=== PATIENT | male | born 1950 | race African-American/Black ===

== ENCOUNTER 2018-02-21 13:49 | Inpatient (IN) | payer MEDICARE ==
[2018-02-21] VITALS (11 sets, daily range): BP systolic 141–195; BP diastolic 74–140; BMI 32.9
[~2018-02-21] VITALS: Ht 180.3 cm; Wt 108.5 kg
[2018-02-21 20:05] LABS: CKMB 82.5 U/L (0.0-3.6); T4 THYROXIN - FREE 0.88 ng/dL (0.76-1.46); THYROID STIMULATING HORMONE 0.53 uIU/mL (0.36-3.74)
[2018-02-21 20:06] LABS: CREATINE KINASE 6119 UL (21-232)
[2018-02-21 20:07] LABS: TROPONIN-I 0.935 ng/mL (0.000-0.060)
[2018-02-21 21:57] LABS: MCH 30.7 pg (26.0-34.0); MCHC 32.5 g/dL (31.0-37.0); MCV 94.3 fL (80.0-100.0); MEAN PLATELET VOLUME 11.5 fL (7.4-10.4); PLATELET COUNT 182 10x3/uL (130-400); RBC 4.24 10x6/uL (4.20-6.10); RDW 14.9 % (11.5-14.5); WBC 20.7 10x3/uL (4.8-10.8)
[2018-02-21 22:07] LABS: ALBUMIN 2.6 g/dL (3.4-5.0); ALKALINE PHOSPHATASE 68 U/L (46-116); ALT (SGPT) 39 U/L (10-68); CALC OSMOLALITY 299 mosm/kg (275-300); CALCIUM 8.6 mg/dL (8.5-10.1); CARBON DIOXIDE 23.2 mmol/L (21.0-32.0); CHLORIDE - SERUM 108 mmol/L (98-107); GLUCOSE 131 mg/dL (74-106); POTASSIUM - SERUM 4.6 mmol/L (3.5-5.1); PROTEIN - SERUM 6.8 g/dL (6.4-8.2); SODIUM 145 mmol/L (136-145); UREA NITROGEN 39 mg/dL (7-18); eGFR NON AFRICAN AMERICAN 10 mL/min (90-120)
[2018-02-21 22:22] LABS: LYMPHOCYTES 10 % (15-50); MONOCYTES 9 % (2-11); NEUTROPHILS 81 % (40-80); PLATELET ESTIMATE NORMAL
[2018-02-22] VITALS (27 sets, daily range): BP systolic 137–180; BP diastolic 72–115
[2018-02-22 01:20] LABS: CKMB 61.8 U/L (0.0-3.6)
[2018-02-22 01:25] LABS: CREATINE KINASE 5448 UL (21-232); TROPONIN-I 0.845 ng/mL (0.000-0.060)
[2018-02-22] MEDS ORDERED: POTASSIUM99 M1 (01:57)
[2018-02-22] MEDS ORDERED: ZYLOPRIM100 MG (01:58)
[2018-02-22] MEDS ORDERED: XARELTO10 MG (01:58)
[2018-02-22 04:57] LABS: BASOPHILS 0 % (0-2); EOSINOPHILS 0 % (0-7); HEMATOCRIT 40.5 % (42.0-54.0); HEMOGLOBIN 13.2 g/dL (13.5-17.5); IMMATURE GRANULOCYTES 0.4 % (0-5); LYMPHOCYTES 8.9 % (15-50); MCH 30.7 pg (26.0-34.0); MCHC 32.6 g/dL (31.0-37.0); MCV 94.2 fL (80.0-100.0); MEAN PLATELET VOLUME 11.4 fL (7.4-10.4); MONOCYTES 4.8 % (2-11); NEUTROPHILS 85.9 % (40-80); PLATELET COUNT 189 10x3/uL (130-400); RDW 14.8 % (11.5-14.5); WBC 21.9 10x3/uL (4.8-10.8)
[2018-02-22 05:15] LABS: ALBUMIN 2.7 g/dL (3.4-5.0); ANION GAP 20.3 mmol/L (8-16); BILIRUBIN - TOTAL 0.38 mg/dL (0.2-1.3); CALCIUM 8.4 mg/dL (8.5-10.1); CARBON DIOXIDE 20.3 mmol/L (21.0-32.0); CREATININE - SERUM 6.8 mg/dL (0.6-1.3); POTASSIUM - SERUM 4.6 mmol/L (3.5-5.1); PROTEIN - SERUM 7.2 g/dL (6.4-8.2)
[2018-02-22 05:27] LABS: APPEARANCE HAZY (CLEAR); BILIRUBIN NEGATIVE (NEGATIVE); COLOR YELLOW (YELLOW); GLUCOSE 50 mg/dL (NEGATIVE); KETONE SMALL mg/dL (NEGATIVE); NITRITE NEGATIVE (NEGATIVE); PROTEIN 2+ mg/dL (NEGATIVE); UROBILINOGEN NORMAL (NORMAL); WHITE CELLS - URINE 0-5 /hpf (0-5)
[2018-02-22 07:31] LABS: CKMB 62.6 U/L (0.0-3.6)
[2018-02-22 07:32] LABS: CREATINE KINASE < 21 UL (21-232); TROPONIN-I 0.096 ng/mL (0.000-0.060)
[2018-02-22 08:51] LABS: CKMB 51.3 U/L (0.0-3.6)
[2018-02-22 08:54] LABS: CREATINE KINASE 5096 UL (21-232); TROPONIN-I 0.663 ng/mL (0.000-0.060)
[2018-02-22 14:25] LABS: POTASSIUM - URINE 22.8 MMOL/L (12.0-62.0)
[2018-02-23] VITALS (23 sets, daily range): BP systolic 150–193; BP diastolic 73–134; Ht 180.3 cm; Wt 108.5 kg
[2018-02-23 04:32] LABS: BASOPHILS 0.1 % (0-2); EOSINOPHILS 0 % (0-7); HEMATOCRIT 33.6 % (42.0-54.0); IMMATURE GRANULOCYTES 0.2 % (0-5); LYMPHOCYTES 6.9 % (15-50); MCH 29.6 pg (26.0-34.0); MCHC 29.8 g/dL (31.0-37.0); MEAN PLATELET VOLUME 12.5 fL (7.4-10.4); MONOCYTES 8.9 % (2-11); NEUTROPHILS 83.9 % (40-80); RDW 15.5 % (11.5-14.5)
[2018-02-23 04:39] LABS: MCV 99.4 fL (80.0-100.0); PLATELET COUNT 128 10x3/uL (130-400); RBC 3.38 10x6/uL (4.20-6.10); WBC 11.3 10x3/uL (4.8-10.8)
[2018-02-23 06:45] LABS: ALBUMIN 2.6 g/dL (3.4-5.0); ANION GAP 18.6 mmol/L (8-16); BILIRUBIN - TOTAL 0.51 mg/dL (0.2-1.3); CALCIUM 8.9 mg/dL (8.5-10.1); CARBON DIOXIDE 24.6 mmol/L (21.0-32.0); POTASSIUM - SERUM 4.2 mmol/L (3.5-5.1)
[2018-02-23 06:46] LABS: CREATININE - SERUM 9.2 mg/dL (0.6-1.3)
== END 2018-02-23 19:50 | disposition short-term general hospital (02) | DRG 871 ==
LOC: D.M2 13:49 → D.ICU 18:27
PROVIDERS: Internal Medicine Nephrology
PROC: 5A09357 Assistance with Respiratory Ventilation, Less than 24 Consecutive Hours, Continuous Positive Airway Pressure (ICD-10-PCS; principal; 2018-02-21)
DX: A41.9 Sepsis, unspecified organism (principal); J96.01 Acute respiratory failure with hypoxia; J96.02 Acute respiratory failure with hypercapnia; I63.9 Cerebral infarction, unspecified; J69.0 Pneumonitis due to inhalation of food and vomit; I13.0 Hypertensive heart and chronic kidney disease with heart failure and stage 1 through stage 4 chronic kidney disease, or unspecified chronic kidney disease; N17.9 Acute kidney failure, unspecified; J44.1 Chronic obstructive pulmonary disease with (acute) exacerbation; J44.0 Chronic obstructive pulmonary disease with (acute) lower respiratory infection; E87.4 Mixed disorder of acid-base balance; I24.8 Other forms of acute ischemic heart disease; M62.82 Rhabdomyolysis; E11.22 Type 2 diabetes mellitus with diabetic chronic kidney disease; I50.9 Heart failure, unspecified; I48.91 Unspecified atrial fibrillation; G47.33 Obstructive sleep apnea (adult) (pediatric); E88.09 Other disorders of plasma-protein metabolism, not elsewhere classified; Z87.891 Personal history of nicotine dependence; N18.3 Chronic kidney disease, stage 3 (moderate)

== ENCOUNTER 2019-11-11 12:12 | Emergency (ER) | payer MEDICARE ==
[~2019-11-11] VITALS: Ht 180.3 cm; Wt 90.9 kg
[~2019-11-11 12:12] MED LIST: POTASSIUM99 M1; XARELTO10 MG; ZYLOPRIM100 MG
[2019-11-11 13:48] LABS: UDS - AMPHET NEGATIVE QUAL (NEGATIVE); UDS - BARB NEGATIVE QUAL (NEGATIVE); UDS - BENZO NEGATIVE QUAL (NEGATIVE); UDS - COCAINE NEGATIVE QUAL (NEGATIVE); UDS - OPIATE NEGATIVE QUAL (NEGATIVE); UDS - PCP NEGATIVE QUAL (NEGATIVE); UDS - THC NEGATIVE QUAL (NEGATIVE)
[2019-11-11 13:49] LABS: ANION GAP 13.9 mmol/L (8-16); CALCIUM 8.9 mg/dL (8.5-10.1); CARBON DIOXIDE 27.8 mmol/L (21.0-32.0); CREATININE - SERUM 5.7 mg/dL (0.6-1.3); POTASSIUM - SERUM 4.7 mmol/L (3.5-5.1)
[2019-11-11 13:50] LABS: BASOPHILS 0.5 % (0-2); EOSINOPHILS 1.1 % (0-7); HEMATOCRIT 37.1 % (42.0-54.0); IMMATURE GRANULOCYTES 0.2 % (0-5); LYMPHOCYTES 18.6 % (15-50); MCH 32.7 pg (26.0-34.0); MCHC 32.3 g/dL (31.0-37.0); MCV 101.1 fL (80.0-100.0); MEAN PLATELET VOLUME 10.9 fL (7.4-10.4); MONOCYTES 9.9 % (2-11); NEUTROPHILS 69.7 % (40-80); PLATELET COUNT 213 10x3/uL (130-400); RBC 3.67 10x6/uL (4.20-6.10); RDW 13.3 % (11.5-14.5); WBC 6.1 10x3/uL (4.8-10.8)
[2019-11-11 13:53] LABS: BILIRUBIN NEGATIVE (NEGATIVE); GLUCOSE NEGATIVE (NEGATIVE); KETONE NEGATIVE (NEGATIVE); NITRITE NEGATIVE (NEGATIVE); UROBILINOGEN NORMAL (NORMAL)
[2019-11-11 13:54] LABS: BACTERIA NONE SEEN /hpf (NEGATIVE); EPITHELIAL CELLS RARE /hpf (0-5); RED CELLS - URINE NONE SEEN /hpf (0-5); WHITE CELLS - URINE 0-5 /hpf (NEGATIVE)
[2019-11-11 14:03] LABS: ALBUMIN 4.1 g/dL (3.4-5.0); BILIRUBIN - TOTAL 0.35 mg/dL (0.2-1.3); MAGNESIUM - SERUM 1.8 mg/dL (1.8-2.4); PROTEIN - SERUM 8.1 g/dL (6.4-8.2); T4 THYROXINE 6.7 ug/dL (4.7-13.3); THYROID STIMULATING HORMONE 0.59 uIU/mL (0.36-3.74)
[2019-11-11 14:13] VITALS: BP 155/76
[2019-11-11 14:14] VITALS: Ht 180.3 cm; Wt 90.9 kg
[2019-11-11] MEDS ORDERED: C-500500 M1 PO (18:41)
[2019-11-11] MEDS ORDERED: OMEPRAZOLE20 M1 (18:47)
[2019-11-11] MEDS ORDERED: RENVELA800 MG PO (18:49)
[2019-11-11] MEDS ORDERED: ACETAMINOPHEN325 MG (18:49)
[2019-11-11] MEDS ORDERED: LEVEMIR IN100 UNITS/ (18:50)
[2019-11-11] MEDS ORDERED: LIDOCAINE50 GM (18:51)
[2019-11-12] MEDS ORDERED: LIPITOR40 MG PO (12:18)
[2019-11-12] MEDS ORDERED: VITAMIN D1000 UNIT PO (12:19)
[2019-11-12] MEDS ORDERED: NEPHRO-VITE RX1 TAB (12:19)
[2019-11-12] MEDS ORDERED: ELIQUIS2.5 MG PO (12:20)
[2019-11-12] MEDS ORDERED: RENVELA800 MG PO (12:21)
[2019-11-12] MEDS ORDERED: HYDROCODON-ACE1 EAC7 PO (12:21)
== END 2019-11-11 17:20 | disposition other institution (70) ==
LOC: D.ER 12:12
PROVIDERS: Family Medicine
DX: F03.91 Unspecified dementia, unspecified severity, with behavioral disturbance (principal); I48.91 Unspecified atrial fibrillation; I10 Essential (primary) hypertension

== ENCOUNTER 2019-11-11 17:39 | Inpatient (IN) | payer MEDICARE ==
[~2019-11-11] VITALS: Ht 180.3 cm; Wt 92.8 kg
[2019-11-11] MEDS ORDERED: C-500500 M1 PO (18:41)
[2019-11-11] MEDS ORDERED: OMEPRAZOLE20 M1 (18:47)
[2019-11-11] MEDS ORDERED: ACETAMINOPHEN325 MG (18:49)
[2019-11-11] MEDS ORDERED: RENVELA800 MG PO (18:49)
[2019-11-11] MEDS ORDERED: LEVEMIR IN100 UNITS/ (18:50)
[2019-11-11] MEDS ORDERED: LIDOCAINE50 GM (18:51)
[2019-11-11 18:57] VITALS: BP 165/77
--- NOTE | 2019-11-11 19:38 | NUR ---
PATIENT ADMITTED TO DR. VU ON [facility] DUE TO COMBATIVE BEHAVIOR AT [facility]. VERBAL CONSENT GIVEN PER DENNIS HERNANDEZ. PT IS A FULL CODE. PT BELONGINGS IN A BAG IN THE ROOM. AWAITING COVID TEST RESULTS FROM [facility]. PT PLACED IN DROPLET PRECAUTIONS. PT TRANFERS WITH 1X ASSISTANCE. UNABLE TO OBTAIN WEIGHT DUE TO PT BEING COMBATIVE. BED ALARM ON AND ACTIVE. WILL CONT PLAN OF CARE.
[2019-11-11 20:00] VITALS: BP 136/84
[2019-11-11 20:06] LABS: CHOL - HDL RATIO 2.6 ratio (2.3-4.9); LDL-HDL RATIO 0.7 ratio (1.5-3.5); THYROID STIMULATING HORMONE 0.54 uIU/mL (0.36-3.74)
[2019-11-12 02:54] LABS: BILIRUBIN NEGATIVE (NEGATIVE); GLUCOSE NEGATIVE (NEGATIVE); KETONE NEGATIVE (NEGATIVE); NITRITE NEGATIVE (NEGATIVE); SPECIFIC GRAVITY 1.015 (1.005-1.020); UROBILINOGEN NORMAL (NORMAL)
[2019-11-12 10:54] VITALS: Ht 180.3 cm; Wt 92.8 kg
[2019-11-12 10:59] VITALS: BP 134/72
--- NOTE | 2019-11-12 12:10 | NUR ---
[facility] COVID RESULTS WERE NEGATIVE.
[2019-11-12] MEDS ORDERED: LIPITOR40 MG PO (12:18)
[2019-11-12] MEDS ORDERED: VITAMIN D1000 UNIT PO (12:19)
[2019-11-12] MEDS ORDERED: NEPHRO-VITE RX1 TAB (12:19)
[2019-11-12] MEDS ORDERED: ELIQUIS2.5 MG PO (12:20)
[2019-11-12] MEDS ORDERED: RENVELA800 MG PO (12:21)
[2019-11-12] MEDS ORDERED: HYDROCODON-ACE1 EAC7 PO (12:21)
--- NOTE | 2019-11-12 14:20 | NUR ---
PT SITTING IN CHAIR WITH EYES CLOSED. NO ACUTE DISTRESS NOTED. PT ALERT TO SELF ONLY. CONFUSION NOTED. REDIRECT AND REORIENT NEEDED. PT DID YELL OUT AT SEVERAL TIMES WHEN ASKING FOR SUGAR FOR TEA. STAFF WAS ABLE TO REDIRECT BEHAVIORS. PT IS COMPLIANT WITH MEDS, VITALS AND ASSESSMENT. PT REQUIRES 2X OR 1X ASSISTANCE FOR TRANSFERS. PT IS POLITE WITH STAFF AND PEERS. CHAIR ALARM IN PLACE AND ACTIVE. WILL CONT PLAN OF CARE.
--- NOTE | 2019-11-12 15:50 | NUR ---
PT IS CURRENTLY IN DIALYSIS. PT YELLED DURING NEEDLE INSERATION. LIDOCAINE CREAM WAS APPLIED PRIOR TO DIALYSIS. AFTER INSERATION PT TOLERATED WELL.
[2019-11-12 20:00] VITALS: BP 128/69
--- NOTE | 2019-11-12 22:55 | NUR ---
B.) PT IS ALERT AND ORIENTED TO SELF AND PLACE. HE IS RECEIVED IN HIS ROOM RECEIVING DIALYSIS. HE IS CALM AND COOPERATIVE. HE IS ABLE TO VOICE NEEDS AND WANTS. I.) REDIRECT NEEDED. R.) EASY TO REDIRECT. P.) WILL CONTINUE TO MONITOR.
[2019-11-13 08:24] VITALS: BP 141/96
--- NOTE | 2019-11-13 13:18 | NUR ---
Obtained a stool specimen for CDT as the patient has had several loose watery stools and they are odoriferous. Sent the speciment to lab and the results are pending at this time.
[2019-11-13 20:02] VITALS: BP 140/75
--- NOTE | 2019-11-13 21:17 | NUR ---
B) Patient is alert and oriented to person, no aggression noted this shift, I) Administered scheduled medications as ordered, monitored for safety R) Medication compliant, needy at times P) Continue plan of care.
[2019-11-14 13:48] VITALS: BP 120/60
--- NOTE | 2019-11-14 14:43 | NUR ---
CONFUSED AND DISORIENTED.DEMANDING AND LOUD.COMPLIANT WITH MEDS AND STAFF.PROPELLS SELF IN WHEELCHAIR.INCONTINENT OF BOWEL THIS AM.WILL CONTINUE WITH CURRENT PLAN OF CARE,MONITOR FOR CHANGES AND SAFETY.
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
--- NOTE | 2019-11-14 19:46 | NUR ---
RECEIVED IN DAYROOM. SITTING IN A CHAIR WITH PEERS AT HIS SIDE. CALM AND COOPERATIVE WITH CARE AND ASSESSMENT. NO SIGNS OF AGGRESSION. REDIRECT AND REORIENT NEEDED. CONTINUES TO SIT CALMLY IN DAYROOM. CONTINUE PLAN OF CARE.
[2019-11-14 20:24] VITALS: BP 149/71
--- NOTE | 2019-11-15 07:45 | NUR ---
PT IS AWAKE AND ALERT TO SELF ONLY. PT YELLING OUT AT STAFF AT THIS TIME. PT IS VERY DEMANDING WITH STAFF. PT BANGING ON NIGHT STAND AND VERY AGGRESSIVE WITH STAFF. UNABLE TO REDIRECT AT THIS TIME. PRN HALDOL 2MG IM AND ATIVAN 0.5MG IM GIVEN PER PRN ORDER. WILL CPOC.
[2019-11-15 08:41] VITALS: BP 148/78
--- NOTE | 2019-11-15 10:47 | NUR ---
Nutrition Follow-up: ESRD with HD on MWF. Diet: Renal PO intake: ~77% average x last 9 meals Last BM: 11/14/19. WT: 195# (11/14/19); Admit Wt: 201# (11/12/19) Meds noted" renagel, SSI, lantus Labs noted (11/11/19): BUN 46(H), Cr 5.7(H), GFR 11(L) Recommend continue Renal diet. RD following.
[2019-11-15 18:35] LABS: BASOPHILS 0.6 % (0-2); EOSINOPHILS 2.3 % (0-7); HEMATOCRIT 34.4 % (42.0-54.0); HEMOGLOBIN 11.3 g/dL (13.5-17.5); IMMATURE GRANULOCYTES 0.2 % (0-5); LYMPHOCYTES 23.4 % (15-50); MCH 32.5 pg (26.0-34.0); MCHC 32.8 g/dL (31.0-37.0); MCV 98.9 fL (80.0-100.0); MEAN PLATELET VOLUME 10.4 fL (7.4-10.4); MONOCYTES 10.6 % (2-11); NEUTROPHILS 62.9 % (40-80); PLATELET COUNT 181 10x3/uL (130-400); RBC 3.48 10x6/uL (4.20-6.10); RDW 13.2 % (11.5-14.5); WBC 4.8 10x3/uL (4.8-10.8)
[2019-11-15 18:56] LABS: ANION GAP 14.6 mmol/L (8-16); CALCIUM 8.9 mg/dL (8.5-10.1); CARBON DIOXIDE 24.9 mmol/L (21.0-32.0); CREATININE - SERUM 5.4 mg/dL (0.6-1.3); POTASSIUM - SERUM 4.5 mmol/L (3.5-5.1)
--- NOTE | 2019-11-15 20:54 | NUR ---
RECEIVED IN BEDROOM. RESTING IN BED WITH EYES CLOSED. RECEIVING DIALYSIS AT THIS TIME. CALM AND COOPERATIVE WITH CARE AND ASSESSMENT. NO SIGNS OF AGGRESSION. REDIRECT AND REORIENT NEEDED. CONTINUES TO REST QUIETLY IN BED. CONTINUE PLAN OF CARE.
[2019-11-15 22:12] VITALS: BP 148/78
[2019-11-16 06:41] LABS: ANION GAP 14.7 mmol/L (8-16); CALCIUM 9.4 mg/dL (8.5-10.1); CARBON DIOXIDE 25.1 mmol/L (21.0-32.0); CREATININE - SERUM 5.1 mg/dL (0.6-1.3); PHOSPHOROUS 5.5 mg/dL (2.5-4.9); POTASSIUM - SERUM 4.8 mmol/L (3.5-5.1); URIC ACID 5.6 mg/dL (2.6-7.2)
[2019-11-16 06:58] LABS: BASOPHILS 0.6 % (0-2); EOSINOPHILS 2.8 % (0-7); HEMOGLOBIN 10.7 g/dL (13.5-17.5); IMMATURE GRANULOCYTES 0.2 % (0-5); LYMPHOCYTES 25.1 % (15-50); MCH 32.2 pg (26.0-34.0); MCHC 32.4 g/dL (31.0-37.0); MCV 99.4 fL (80.0-100.0); MEAN PLATELET VOLUME 11.1 fL (7.4-10.4); MONOCYTES 10.1 % (2-11); NEUTROPHILS 61.2 % (40-80); PLATELET COUNT 173 10x3/uL (130-400); RBC 3.32 10x6/uL (4.20-6.10); RDW 13.1 % (11.5-14.5); WBC 4.9 10x3/uL (4.8-10.8)
[2019-11-16 11:40] VITALS: BP 158/75
--- NOTE | 2019-11-16 11:56 | NUR ---
RECEIVED IN HALLWAY OUTSIDE OF NURSES STATION. CALM AND COOPERATIVE WITH CARE AND ASSESSMENT. CAN BE VERY DEMANDING AT TIMES. NO COMBATIVE BEHAVIOR TODAY. REDIRECT AND REORIENT NEEDED. EATING AT THIS TIME. CONTINUE PLAN OF CARE.
[2019-11-16 20:53] VITALS: BP 158/75
--- NOTE | 2019-11-16 22:10 | NUR ---
RECEIVED IN DAYROOM. SITTING IN A CHAIR WITH PEERS AT HIS SIDE. CALM AND COOPERATIVE WITH CARE AND ASSESSMENT. NO SIGNS OF AGGRESSION. REDIRECT AND REORIENT NEEDED. RESTING IN BED WITH EYES CLOSED AT THIS TIME. CONTINUE PLAN OF CARE.
[2019-11-17 07:14] LABS: HEP B CORE AB TOTAL Negative (Negative); HEPATITIS C ANTIBODY 0.3 S/CO RAT (0.0-0.9)
[2019-11-17 09:19] VITALS: BP 172/79
--- NOTE | 2019-11-17 13:47 | NUR ---
Nutrition Follow-up: ESRD gets HD on MWF. Diet: Renal PO intake: ~64% average x last 9 meals Last BM: 11/16/19. WT: 195# (11/14/19); Admit WT: 200# (11/11/19) Meds noted: SSI, renagel, lantus Labs noted: BUN 52(H), Cr 5.1(H), GFR 12(L), POC Glu 116(H), PO4 5.5(H) Recs: -Patient may need carb consistent diet -Will add Nepro with meals to help meet increased protein needs while on HD RD following.
--- NOTE | 2019-11-17 14:39 | NUR ---
PT SITTING IN W/C IN DAYROOM WITH PEERS AT THIS TIME. CALM AND COOPERATIVE WITH ASSESSMENT AT THIS TIME. PT CAN BECOME DEMANDING AND AGGRESSIVE EASILY AT TIMES. REDIRECT AND REORIENT NEEDED. PRESCRIBED MEDS PROVIDED ORDERED. MED COMPLIANT. FALL PRECAUTIONS IN PLACE. CATALINA MANNING.
[2019-11-17 20:03] VITALS: BP 163/72
--- NOTE | 2019-11-18 00:21 | NUR ---
B.) PT IS ALERT AND ORIENTED TO SELF AND PLACE. HE IS ABLE TO VOICE HIS NEEDS AND CONCERNS. HE IS HARD OF HEARING. HE IS CALM AND COOPERATIVE. HE IS RECEIEVED IN HIS ROOM RECEIVING DIALYSIS. NO AGGRESSION NOTED. I.) PROVIDED PM MEDICATIONS PRESCRIBED. REDIRECT NEEDED. R.) COMPLIANT WITH ALL MEDICATIONS. EASY TO REDIRECT. P.) WILL CONTINUE TO MONITOR.
[2019-11-18 06:12] LABS: ALBUMIN 3.8 g/dL (3.4-5.0); ANION GAP 12.2 mmol/L (8-16); BILIRUBIN - TOTAL 0.27 mg/dL (0.2-1.3); CALCIUM 9.3 mg/dL (8.5-10.1); CARBON DIOXIDE 27.1 mmol/L (21.0-32.0); POTASSIUM - SERUM 4.3 mmol/L (3.5-5.1); PROTEIN - SERUM 7.9 g/dL (6.4-8.2)
--- NOTE | 2019-11-18 08:41 | NUR ---
PT SITTING IN CHAIR WITH EYES CLOSED. NO ACUTE DISTRESS NOTED. PT IS ALERT TO SELF ONLY. CONFUSION NOTED. REDIRECT AND REORIENT NEEDED. PT SLEPT ONLY 1.5 HOURS. REPORTED BEHAVIORS PT CAN BE DEMANDING AND AGITATED WITH CARE. PT REQUIRES ASSISTANCE WITH ADLS. CHAIR ALARM IN PLACE AND ACTIVE. WILL CONT PLAN OF CARE.
[2019-11-18 09:09] VITALS: BP 132/72
--- NOTE | 2019-11-18 10:13 | NUR ---
SW SPOKE TO PT'S , DENNIS, WHO CALLED FOR AN UPDATE. SW UPDATED ON PT'S CONDITION AND EATING AND SLEEPING FOR DAY PRIOR. PT'S VOICED UNDERSTANDING OF PT'S CONDITION AND DISCUSSION.
[2019-11-18 20:19] VITALS: BP 144/85
--- NOTE | 2019-11-18 22:24 | NUR ---
RECEIVED PATIENT IN DAYROOM, HE IS QUIET, STAYS TO HIMSELF, MAKE NEEDS AND WANTS KNOWN, LITTLE CONFUSED ABOUT WHERE HIS ROOM WAS, COMPLIANT WITH MEDS. WILL FOLLOW POC
[2019-11-19 07:27] LABS: BASOPHILS 0.4 % (0-2); EOSINOPHILS 1.9 % (0-7); HEMATOCRIT 33.7 % (42.0-54.0); LYMPHOCYTES 21.3 % (15-50); MCHC 32.6 g/dL (31.0-37.0); MEAN PLATELET VOLUME 10.1 fL (7.4-10.4); NEUTROPHILS 66.4 % (40-80); PLATELET COUNT 160 10x3/uL (130-400); RBC 3.44 10x6/uL (4.20-6.10); WBC 4.8 10x3/uL (4.8-10.8)
[2019-11-19 07:37] LABS: ANION GAP 13.6 mmol/L (8-16); CALCIUM 9.6 mg/dL (8.5-10.1); CARBON DIOXIDE 27.4 mmol/L (21.0-32.0); CREATININE - SERUM 6.1 mg/dL (0.6-1.3); MAGNESIUM - SERUM 1.7 mg/dL (1.8-2.4)
[2019-11-19 07:38] LABS: PHOSPHOROUS 5.3 mg/dL (2.5-4.9)
--- NOTE | 2019-11-19 11:00 | NUR ---
The patient is very sleepy and he says he is cold all day. He has not been combative, but he yells with lab draws. He does have some delusional thinking. He has poor insight into his situation. He will not stand to assist staff to stand. Provide prescribed meds. The patient is compliant with meds. Continue POC.
[2019-11-19 14:10] VITALS: BP 138/88
[2019-11-19 20:08] VITALS: BP 103/72
--- NOTE | 2019-11-19 22:00 | NUR ---
RECEIVED IN ROOM GETTING HEMODIALYSIS AT BEDSIDE. CALM AND COOPERATIVE WITH CARE AND ASSESSMENT. MEDICATION COMPLIANT. WILL CONTINUE POC.
[2019-11-20 09:54] VITALS: BP 138/79
--- NOTE | 2019-11-20 10:10 | NUR ---
The patient is in a great mood this am, he is interacting with other peers and he is laughing and joking. He is pleasant, he is sitting in a w/c and he needs assist to propel as he says he will not do it. He does not like any needles, he yells. He has not shown any aggression this am. Provide prescribed meds. The patient is compliant with meds. Continue to monitor his behavior. Continue POC.
--- NOTE | 2019-11-20 11:20 | NUR ---
PT CALLED TO CHECK ON PT THIS SHIFT. PASSCODE GIVEN. NURSE GAVE AN UPDATE WITH THE INFORMATION AVALIABLE. PT HANDLED DIALYSIS WELL ON PREVIOUS SHIFT. SHE TOLD ME WHAT TO SAY TO HIM IF HE WAS NOT HANDLING DIALYSIS WELL. SHE THANKED NURSE FOR THE INFORMATION.
[2019-11-20 20:00] VITALS: BP 130/48
--- NOTE | 2019-11-20 21:13 | NUR ---
RECEIVED IN DAYROOM. SITTING IN A CHAIR WITH PEERS AT HIS SIDE. CALM AND COOPERATIVE WITH CARE AND ASSESSMENT. SOCIAL AT TIMES. NO SIGNS OF AGGRESSION. REDIRECT AND REORIENT NEEDED. CONTINUES TO SIT CALMLY IN DAYROOM. CONTINUE PLAN OF CARE.
--- NOTE | 2019-11-21 08:15 | NUR ---
REC'D PT IN DINING ROOM WITH PERS. CALM AND COOPERATIVE WITH ASSESSMENT AT THIS TIME. PT CAN BE VERY DEMANDING AND LOUD WITH STAFF AT TIMES. PRESCRIBED MEDS PROVIDED ORDERED. MED COMPLIANT. FALL PRECAUTIONS IN PLACE. WILL CPOC.
[2019-11-21 09:18] VITALS: BP 145/80
--- NOTE | 2019-11-21 11:40 | NUR ---
The patient's called and asked "What stage of dementia in?" Explained to her that he is far advanced. She wanted to know the number. Explained to her that the DrVic would better be able to answer her questions. She said "How do you refuse him his treatments when he tells you he doesn't want dialysis?" Let her know that it is their decision to make, he has been compliant and going to dialysis, but he screams d/t the needles." She said "I've known him for 30 years and he's never been afraid of anything." Explained to her that "It is probably related to his dementia."
--- NOTE | 2019-11-21 19:31 | NUR ---
RECEIVED IN DAYROOM. SITTING IN A CHAIR WITH PEERS AT HIS SIDE/ SOCIAL AT TIMES. CALM AND COOPERATIVE WITH CARE AND ASSESSMENT. NO SIGNS OF AGGRESSION. REDIRECT AND REORIENT NEEDED. CONTINUES TO SIT CALMLY IN DAYROOM. CONTINUE PLAN OF CARE.
[2019-11-21 20:06] VITALS: BP 124/62
--- NOTE | 2019-11-22 12:00 | NUR ---
RECEIVED IN HALLWAY OUTSIDE OF NURSES STATION. CALM AND COOPERATIVE WITH CARE AND ASSESSMENT. NO COMBATIVE BEHAVIORS TODAY. REDIRECT AND REORIENT NEEDED. EATING AT THIS TIME. CONTINUE PLAN OF CARE.
--- NOTE | 2019-11-22 18:46 | NUR ---
HAVE CALLED SEVERAL SEVERAL TIMES TO LET THE NURSES KNOW I WS GETTING STUFF READY TO COME AND DO MRVic HERNANDEZ. SO THEY COULD APPLY EMAL REAM TO [facility]. TAKES ANYWHERE FROM 30 TO 45 MIN. TO WORK
[2019-11-22 19:51] VITALS: BP 149/89
--- NOTE | 2019-11-22 20:19 | NUR ---
RECEIVEDIN DAYROOM. SITTING IN A WHEELCHAIR WITH PEERS AT HIS SIDE. CALM AND COOPERATIVE WITH CARE AND ASSESSMENT. NO SIGNS OF AGGRESSION. REDIRECT AND REORIENT NEEDED. TRANSFERED TO BEDROOM FOR DIALYSIS AT THIS TIME. CONTINUE PLAN OF CARE.
[2019-11-23 10:00] VITALS: BP 131/74
--- NOTE | 2019-11-23 13:03 | NUR ---
PT SITTING IN DAYROOM WITH PEERS. CALM AND COOPERATIVE WITH ASSESSMENT. PRESCRIBED MEDS PROVIDED ORDERED. MED COMPLIANT. COVID TEST COMPLETED, RESULTS PENDING. REDIRECT AND REORIENT NEEDED. NO BEHAVIORS NOTED. WILL CPOC.
--- NOTE | 2019-11-23 15:08 | PN ---
PATIENT:JEFERSON HERNANDEZ MEDICAL RECORD: [id number] LOCATION:[facility] ADMISSION DATE: 11/11/19 PROGRESS NOTE DATE OF SERVICE: 11/22/2019 SUBJECTIVE: The patient's case was discussed with staff. He has no new complaint. OBJECTIVE: The patient denies that he would seek to harm himself or others. He is tolerating his medicines well. He has had no disruptive behaviors today. ASSESSMENT: Dementia. PLAN: The patient's Geodon is going to be reduced to 20 mg at bedtime. He will be monitored for clinical changes associated with its use. His long-term prognosis is guarded. Both supportive and educational interventions were made. TRANSINT:[id number] Voice Confirmation ID: [id number] DOCUMENT ID: [id number] BAILEE VU MD at 1508 CC: [id number] DICTATION DATE: 11/22/19 1505 HYDROLOGY PROFESSOR: 11/22/19 2323 ADM IN [place] [id number] [place] [address]
[2019-11-23] MEDS ORDERED: DESERYL PO (15:15)
[2019-11-23] MEDS ORDERED: ZOLOFT50 MG PO (15:15)
[2019-11-23] MEDS ORDERED: HYDRALAZINE HCL25 MG PO (15:15)
[2019-11-23] MEDS ORDERED: GEODON20 MG PO (15:16)
[2019-11-23 20:11] VITALS: BP 143/60
[2019-11-24 08:26] LABS: ALBUMIN 3.4 g/dL (3.4-5.0); ANION GAP 13.1 mmol/L (8-16); BILIRUBIN - TOTAL 0.25 mg/dL (0.2-1.3); CALCIUM 9.8 mg/dL (8.5-10.1); CARBON DIOXIDE 24.9 mmol/L (21.0-32.0); CREATININE - SERUM 5.7 mg/dL (0.6-1.3); PROTEIN - SERUM 6.9 g/dL (6.4-8.2)
[2019-11-24 08:41] LABS: HEMATOCRIT 30.7 % (42.0-54.0); HEMOGLOBIN 10.5 g/dL (13.5-17.5); LYMPHOCYTES 24.6 % (15-50); MCH 33.1 pg (26.0-34.0); MCHC 34.2 g/dL (31.0-37.0); MCV 96.8 fL (80.0-100.0); MEAN PLATELET VOLUME 11.3 fL (7.4-10.4); NEUTROPHILS 63.9 % (40-80); PLATELET COUNT 161 10x3/uL (130-400); RBC 3.17 10x6/uL (4.20-6.10); RDW 12.5 % (11.5-14.5); WBC 4.6 10x3/uL (4.8-10.8)
[2019-11-24 10:24] VITALS: BP 131/67
--- NOTE | 2019-11-24 10:59 | NUR ---
Nutrition Follow-up: ESRD on HD on MWF, tolerates only 2hrs. Diet: Renal + Nepro with meals PO intake: ~88% average x last 9 meals Last BM: 11/22/19. Wt: 204# (11/24/19); Admit WT: 200# (11/11/19) Meds noted: SSI, lantus, renagel Labs noted: BUN 79(H), Cr 5.7(H), GFR 11(L) Recommend continue current diet and oral nutrition supplements. RD following.
--- NOTE | 2019-11-24 11:29 | NUR ---
The patient is awake and alert and he speaks loudly and he wants his shoes. Staff explained to him that they are looking for them. He is calm and polite. He self propels in a w/c. Provide prescribed meds. The patient is compliant with meds. Continue POC.
--- NOTE | 2019-11-24 14:21 | NUR ---
SPOKE WITH PTS SEVERAL TIMES ABOUT PTS DISCHARGE. AWAITING PICKUP AT THIS TIME.
--- NOTE | 2019-11-24 14:34 | NUR ---
NURSE CALLED [facility] IN [place] TO CALL REPORT. REPORT WAS CALLED TO NIGHAT AND UPDATE WAS GIVEN. PAPERCOPY TO BE SENT WITH PT AND PAPERWORK FAXED TO FACILITY. NURSE EXPLAINED DIALYSIS WAS TO BE DONE TODAY BUT PT WAS DISCHARGING. SO THAT DIALYSIS WOULD HAVE TO BE DONE AFTER ARRIVING BACK TO THE FACILITY.
--- NOTE | 2019-11-24 16:23 | PN ---
PATIENT:JEFERSON HERNANDEZ MEDICAL RECORD: [id number] LOCATION:[facility] ADMISSION DATE: 11/11/19 PROGRESS NOTE DATE OF SERVICE: 11/23/2019 SUBJECTIVE: The patient's case was discussed with staff. He has no new complaint. OBJECTIVE: The patient is in good behavioral control. He is impaired cognitively. ASSESSMENT: Dementia. PLAN: Current medicines and therapies have been reviewed. Long-term prognosis is guarded. I anticipate he can be transitioned home tomorrow. TRANSINT:[id number] Voice Confirmation ID: [id number] DOCUMENT ID: [id number] BAILEE VU MD at 1623 CC: [id number] DICTATION DATE: 11/23/19 1513 LONG WALL SHEAR OPERATOR: 11/23/19 2110 ADM IN [place] [id number] [place] [id number]
--- NOTE | 2019-11-24 17:46 | NUR ---
pt discharge to [facility] with facility route cdl driver and van. pt was very thrilled to be heading back to see his . pt tolerated discharge well. all belongings sent with pt. paperwork faxed to facility and paper copy sent with pt at this time. pt wheeled out in personal w/c. notified of pts d/c to facility. all 1700 meds and fsbs obtained prior to d/c.
--- NOTE | 2019-11-25 16:51 | PN ---
PATIENT:JEFERSON HERNANDEZ MEDICAL RECORD: [id number] LOCATION:[facility] ADMISSION DATE: 11/11/19 PROGRESS NOTE DATE OF SERVICE: 11/24/2019 SUBJECTIVE: The patient's case was discussed with staff. He has no new complaint. OBJECTIVE: The patient denies intent to harm himself or others. He has been sleeping and eating well. ASSESSMENT: Dementia. PLAN: The patient will be transitioned out of the hospital today. Followup will be with his primary care fpc in [place], [place]. TRANSINT:[id number] Voice Confirmation ID: [id number] DOCUMENT ID: [id number] BAILEE VU MD at 1651 CC: [id number] DICTATION DATE: 11/24/19 165 KERSEY DEPARTMENT SUPERVISOR: 11/24/19 190 DIS IN 11/24/19 [facility] [address] [place] [address]
== END 2019-11-24 17:50 | DRG 56 ==
LOC: D.PSYCH 17:39
PROVIDERS: Internal Medicine; Internal Medicine Nephrology; ADMIT Psychiatry & Neurology Psychiatry; ATTEND Psychiatry & Neurology Psychiatry
DX: G30.1 Alzheimer's disease with late onset (principal); N18.6 End stage renal disease; F02.81 Dementia in other diseases classified elsewhere, unspecified severity, with behavioral disturbance; I12.0 Hypertensive chronic kidney disease with stage 5 chronic kidney disease or end stage renal disease; E11.22 Type 2 diabetes mellitus with diabetic chronic kidney disease; Z99.2 Dependence on renal dialysis; I48.0 Paroxysmal atrial fibrillation; K21.9 Gastro-esophageal reflux disease without esophagitis; M19.90 Unspecified osteoarthritis, unspecified site; R19.7 Diarrhea, unspecified; R26.9 Unspecified abnormalities of gait and mobility; I25.10 Atherosclerotic heart disease of native coronary artery without angina pectoris

== ENCOUNTER 2019-12-23 16:53 | Inpatient (IN) | payer MEDICARE ==
[~2019-12-23] VITALS: Ht 180.3 cm; Wt 95.3 kg
[~2019-12-23 16:53] MED LIST changes: +ACETAMINOPHEN325 MG; +C-500500 M1 PO; +DESERYL PO; +ELIQUIS2.5 MG PO; +GEODON20 MG PO; +HYDRALAZINE HCL25 MG PO; +HYDROCODON-ACE1 EAC7 PO; +LEVEMIR IN100 UNITS/; +LIDOCAINE50 GM; +LIPITOR40 MG PO; +NEPHRO-VITE RX1 TAB; +OMEPRAZOLE20 M1 PO; +RENVELA800 MG PO; +VITAMIN D1000 UNIT PO; +ZOLOFT50 MG PO
--- NOTE | 2019-12-23 23:00 | NUR ---
EMS STAFF ASSISTED PT FROM STRETCHER TO CHAIR. AFTER EMS STAFF LEFT, PT WANTED TO GO TO BED. ATTEMPTED TO ASSIST HIM BUT HE IS VERY WEAK AND UNSTEADY ON HIS FEET. CODE MUSCLE WAS CALLED AND PT WAS ASSISTED TO BED. HE WAS UPSET WHEN I WOULD NOT HELP HIM TO THE BATHROOM. TOLD HIM I COULD ASSIST HIM WITH THE BEDPAN. PT AGREED. HE HAD A LARGE, LOOSE BOWEL MOVEMENT AND VOIDED 400ML OF YELLOW URINE INTO URINAL. EMS STAFF REPORTS PT PULLED OUT IV ON THE WAY TO THE HOSPITAL. PT REFUSING TO LET ME START ANOTHER IV. SPOKE TO FATIMAH ALVARADO APN WHO IS OKAY IF PT DOES NOT HAVE IV ACCESS AT THIS TIME. KATHLEEN ALARM ON. SIDE RAILS UP X 2 AND BED IS IN THE LOWEST POSITION. CALL LIGHT WITHIN REACH. HE IS ALERT AND ORIENTED X 4 BUT FORGETFUL AND WHEN ASKED QUESTIONS REGARDING HIS HEALTH, HE STATES I CANT REMEMBER ON ALOT OF THE QUESTIONS. WILL CONTINUE TO MONITOR.
[2019-12-23 23:45] VITALS: BP 155/82
[2019-12-24] MEDS ORDERED: CYCLOBENZAPRINE10 MG PO (00:26)
[2019-12-24] MEDS ORDERED: SEROQUEL25 MG PO (00:27)
[2019-12-24] MEDS ORDERED: RENA-VITE TABL0.8 MG PO (00:29)
[2019-12-24 04:01] VITALS: BP 158/89
--- NOTE | 2019-12-24 07:15 | NUR ---
RECEIVED PT IN BED EYES CLOSED RESP UNLABORED SKIN W/D COLOR WNL NAD NOTED
[2019-12-24 09:45] LABS: BASOPHILS 0.6 % (0-2); EOSINOPHILS 6.6 % (0-7); HEMATOCRIT 32.1 % (42.0-54.0); HEMOGLOBIN 10.2 g/dL (13.5-17.5); IMMATURE GRANULOCYTES 1.2 % (0-5); LYMPHOCYTES 15.2 % (15-50); MCHC 31.8 g/dL (31.0-37.0); MCV 100.6 fL (80.0-100.0); MEAN PLATELET VOLUME 10.6 fL (7.4-10.4); MONOCYTES 4.3 % (2-11); NEUTROPHILS 72.1 % (40-80); PLATELET COUNT 176 10x3/uL (130-400); RBC 3.19 10x6/uL (4.20-6.10); RDW 13.2 % (11.5-14.5); WBC 5.1 10x3/uL (4.8-10.8)
[2019-12-24 09:55] LABS: APTT 31.6 SECONDS (22.8-39.4); INR 1.18 (0.85-1.17); PROTIME 14.9 SECONDS (11.6-15.0)
[2019-12-24 10:09] LABS: ANION GAP 16.7 mmol/L (8-16); MAGNESIUM - SERUM 1.5 mg/dL (1.8-2.4); PHOSPHOROUS 3.2 mg/dL (2.5-4.9)
[2019-12-24 10:25] LABS: POTASSIUM - SERUM 6.7 mmol/L (3.5-5.1)
[2019-12-24 12:37] VITALS: Ht 180.3 cm; Wt 95.3 kg
[2019-12-24] MEDS ORDERED: GEODON20 MG PO (15:35)
--- NOTE | 2019-12-24 18:07 | NUR ---
AWAITING EMS FOR NONURGENT TRANSFER BACK TO [facility] REPORT CALLED TO VIMAL MATA LPN
--- NOTE | 2019-12-24 20:43 | NUR ---
PT OFF THE FLOOR VIA STRETCHER ACCOMPANIED BY EMS. PAPERWORK GIVEN TO EMS.
--- NOTE | 2019-12-27 15:46 | MORECARE ---
CASE MANAGEMENT DISCHARGE SUMMARY PATIENT: JEFERSON HERNANDEZ UNIT: [id number] ADM DATE: 12/23/19 AGE: 69 : 49 SEX: M ROOM/BED: D.2107 AUTHOR: FRED MEDINA PHYSICIAN: REFERRING PHYSICIAN: CHRISTOPHER LEON MD DATE OF SERVICE: 12/27/19 Discharge Plan Patient Name: JEFERSON HERNANDEZ Facility: [facility]:[place] : 1950 Planned Disposition: Nursing Facility DAVE Cert Anticipated Discharge Date: 12/24/19 Discharge Date: 12/24/2019 Expected LOS: 1 Initial Reviewer: [email or web address] Initial Review Date: 12/24/2019 Generated: 12/27/19 4:45 pm DCP- Discharge Planning Updated by [email or web address]: Yamila Taylor on 12/24/19 5:[address] CM has contacted [facility] to verify that patient is a resident and they will accept him back to the facility. HD T/TH/S in the [place] unit. Patient will return to the facility. Per Lisa, with Tobias and Dr. Dobbs, the patient will not be accepted to any of the HD units due to his ongoing behavior. Per Psych ASSESSMENT:[dementia with behaviors] PLAN:[Restart Geodon 20 mg By mouth. at bedtime and trazodone 50 mg p.o. at bedtime] Patient Name: JEFERSON HERNANDEZ Page [id number] at 1546 All edits/amendments must be made on the electronic document DICTATION DATE: 12/27/19 1546 HIGH SCHOOL HISTORY TEACHER: OFELIA 12/27/19 1546 RPT#: [id number] DC DATE:12/24/19 STATUS: DIS IN [facility] [address] [place] [address] END OF REPORT
== END 2019-12-24 20:47 | DRG 699 ==
LOC: D.M2 16:53
PROVIDERS: ADMIT Family Medicine; ATTEND Family Medicine
PROC: 5A1D70Z Performance of Urinary Filtration, Intermittent, Less than 6 Hours Per Day (ICD-10-PCS; principal; 2019-12-24)
DX: E11.22 Type 2 diabetes mellitus with diabetic chronic kidney disease (principal); F02.81 Dementia in other diseases classified elsewhere, unspecified severity, with behavioral disturbance; I13.2 Hypertensive heart and chronic kidney disease with heart failure and with stage 5 chronic kidney disease, or end stage renal disease; I50.20 Unspecified systolic (congestive) heart failure; N18.6 End stage renal disease; Z99.2 Dependence on renal dialysis; G30.9 Alzheimer's disease, unspecified; I48.0 Paroxysmal atrial fibrillation; D63.1 Anemia in chronic kidney disease; K21.9 Gastro-esophageal reflux disease without esophagitis; E78.5 Hyperlipidemia, unspecified; Z86.73 Personal history of transient ischemic attack (TIA), and cerebral infarction without residual deficits

== ENCOUNTER 2019-12-31 19:26 | Inpatient (IN) | payer MEDICARE ==
[~2019-12-31] VITALS: Ht 180.3 cm; Wt 95.5 kg
[~2019-12-31 19:26] MED LIST changes: +CYCLOBENZAPRINE10 MG PO; +RENA-VITE TABL0.8 MG PO; +SEROQUEL25 MG PO
[2019-12-31 20:39] LABS: BASOPHILS 0.3 % (0-2); EOSINOPHILS 0.1 % (0-7); HEMATOCRIT 34.9 % (42.0-54.0); HEMOGLOBIN 11.3 g/dL (13.5-17.5); IMMATURE GRANULOCYTES 0.4 % (0-5); MCH 32.1 pg (26.0-34.0); MCHC 32.4 g/dL (31.0-37.0); MCV 99.1 fL (80.0-100.0); MEAN PLATELET VOLUME 10.9 fL (7.4-10.4); MONOCYTES 3.9 % (2-11); NEUTROPHILS 87.3 % (40-80); PLATELET COUNT 186 10x3/uL (130-400); RBC 3.52 10x6/uL (4.20-6.10); RDW 13.6 % (11.5-14.5); WBC 7.8 10x3/uL (4.8-10.8)
[2019-12-31 21:18] LABS: APTT 32.4 SECONDS (22.8-39.4); INR 1.22 (0.85-1.17); PROTIME 15.3 SECONDS (11.6-15.0)
[2019-12-31 21:34] LABS: BILIRUBIN NEGATIVE (NEGATIVE); GLUCOSE NEGATIVE (NEGATIVE); KETONE NEGATIVE (NEGATIVE); NITRITE NEGATIVE (NEGATIVE); UROBILINOGEN NORMAL (NORMAL)
[2019-12-31 21:36] LABS: ALBUMIN 3.7 g/dL (3.4-5.0); ALKALINE PHOSPHATASE 91 U/L (30-120); ALT (SGPT) 25 U/L (10-68); BILIRUBIN - TOTAL 0.39 mg/dL (0.2-1.3); CALC OSMOLALITY 291 mosm/kg (275-300); CALCIUM 9.4 mg/dL (8.5-10.1); CARBON DIOXIDE 19.8 mmol/L (21.0-32.0); CHLORIDE - SERUM 111 mmol/L (98-107); CKMB 4.5 U/L (0.0-3.6); CREATINE KINASE 165 UL (21-232); CREATININE - SERUM 4.9 mg/dL (0.6-1.3); GLUCOSE 108 mg/dL (74-106); MAGNESIUM - SERUM 1.3 mg/dL (1.8-2.4); PROTEIN - SERUM 7.7 g/dL (6.4-8.2); SODIUM 139 mmol/L (136-145); UREA NITROGEN 49 mg/dL (7-18); eGFR NON AFRICAN AMERICAN 12 mL/min (90-120)
[2019-12-31 21:46] LABS: TROPONIN-I 0.082 ng/mL (0.000-0.060)
[2019-12-31 21:47] LABS: POTASSIUM - SERUM 6.2 mmol/L (3.5-5.1)
--- NOTE | 2019-12-31 23:59 | NUR ---
TRANSPORTED WITH NOEL GUERRERO
[2020-01-01 01:33] VITALS: BP 160/68; BMI 29.3
--- NOTE | 2020-01-01 01:59 | NUR ---
RECIEVED REPORT FROM ER. ARRIVED TO FLOOR ON STRETCHER. TRANSFER TO BED BY 3 STAFF. ALERT AND ORIENTED TO PERSON ONLY. HAS A HX OF ALZHIEMERS. UNABLE TO ANSWER MOST QUESTIONS ABOUT HX. WAS ABLE TO TELL THIS NURSE THAT HE HAD A STROKE AND THATS WHY HE CAN'T WALK. RT ARM RESERVED D/T AVF. IV TO LT FA SL. DENIES ANY NEEDS AT THIS TIME.ASSESSMENT COMPLETED.
[2020-01-01 05:49] LABS: BASOPHILS 0.3 % (0-2); EOSINOPHILS 0.6 % (0-7); HEMATOCRIT 30.4 % (42.0-54.0); HEMOGLOBIN 9.6 g/dL (13.5-17.5); LYMPHOCYTES 17.3 % (15-50); MCH 31.6 pg (26.0-34.0); MCHC 31.6 g/dL (31.0-37.0); MEAN PLATELET VOLUME 11.2 fL (7.4-10.4); NEUTROPHILS 70.8 % (40-80); PLATELET COUNT 190 10x3/uL (130-400); RBC 3.04 10x6/uL (4.20-6.10); RDW 13.6 % (11.5-14.5); WBC 6.6 10x3/uL (4.8-10.8)
[2020-01-01 06:13] LABS: ALBUMIN 3.7 g/dL (3.4-5.0); ANION GAP 17.6 mmol/L (8-16); BILIRUBIN - TOTAL 0.47 mg/dL (0.2-1.3); CALCIUM 9.4 mg/dL (8.5-10.1); CARBON DIOXIDE 18.2 mmol/L (21.0-32.0); CREATININE - SERUM 4.7 mg/dL (0.6-1.3); POTASSIUM - SERUM 5.8 mmol/L (3.5-5.1); PROTEIN - SERUM 6.9 g/dL (6.4-8.2)
[2020-01-01 08:00] VITALS: BP 153/90
[2020-01-01 09:38] VITALS: Ht 180.3 cm; Wt 95.5 kg
--- NOTE | 2020-01-01 14:23 | NUR ---
SALINE LOCK OUT AND DRESSING APPLIED, PATIENT CLEANED AND DRESSED AND WAITING FOR ALF VAN.
--- NOTE | 2020-01-01 14:28 | NUR ---
REPORT CALLED TO GENE AT [facility]
--- NOTE | 2020-01-01 14:59 | NUR ---
UP IN [facility] WHEELCHAIR AND TO VAN FOR DISCHARGE BACK
== END 2020-01-01 15:00 | DRG 640 ==
LOC: D.ER 19:26 → D.M2 21:52
PROVIDERS: Family Medicine; ADMIT Internal Medicine; ATTEND Internal Medicine
PROC: 5A1D70Z Performance of Urinary Filtration, Intermittent, Less than 6 Hours Per Day (ICD-10-PCS; principal; 2020-01-01)
DX: E87.5 Hyperkalemia (principal); N18.6 End stage renal disease; I13.2 Hypertensive heart and chronic kidney disease with heart failure and with stage 5 chronic kidney disease, or end stage renal disease; F03.91 Unspecified dementia, unspecified severity, with behavioral disturbance; E11.22 Type 2 diabetes mellitus with diabetic chronic kidney disease; I50.9 Heart failure, unspecified; Z99.2 Dependence on renal dialysis; I48.91 Unspecified atrial fibrillation; E78.5 Hyperlipidemia, unspecified; Z86.73 Personal history of transient ischemic attack (TIA), and cerebral infarction without residual deficits; Z95.0 Presence of cardiac pacemaker

== ENCOUNTER 2020-01-06 12:56 | Emergency (ER) | payer MEDICARE ==
[2020-01-06 13:06] VITALS: Ht 180.3 cm
[2020-01-06 16:14] LABS: BASOPHILS 0.6 % (0-2); EOSINOPHILS 1.7 % (0-7); HEMATOCRIT 33.6 % (42.0-54.0); HEMOGLOBIN 10.7 g/dL (13.5-17.5); IMMATURE GRANULOCYTES 0.1 % (0-5); LYMPHOCYTES 19.8 % (15-50); MCH 31.7 pg (26.0-34.0); MCHC 31.8 g/dL (31.0-37.0); MCV 99.4 fL (80.0-100.0); MEAN PLATELET VOLUME 10.8 fL (7.4-10.4); MONOCYTES 7.3 % (2-11); NEUTROPHILS 70.5 % (40-80); PLATELET COUNT 203 10x3/uL (130-400); RBC 3.38 10x6/uL (4.20-6.10); RDW 13.6 % (11.5-14.5); WBC 7.2 10x3/uL (4.8-10.8)
[2020-01-06 16:31] LABS: ANION GAP 17.4 mmol/L (8-16); CALCIUM 9.7 mg/dL (8.5-10.1); CREATININE - SERUM 5.4 mg/dL (0.6-1.3); POTASSIUM - SERUM 5.4 mmol/L (3.5-5.1)
[2020-01-06 16:35] LABS: BILIRUBIN - TOTAL 0.36 mg/dL (0.2-1.3); PROTEIN - SERUM 7.5 g/dL (6.4-8.2)
[2020-01-06 18:35] VITALS: BP 152/71
== END 2020-01-06 18:36 | disposition home or self-care (01) ==
LOC: D.ER 12:56
PROVIDERS: Emergency Medicine
DX: E11.22 Type 2 diabetes mellitus with diabetic chronic kidney disease (principal); I12.0 Hypertensive chronic kidney disease with stage 5 chronic kidney disease or end stage renal disease; N18.6 End stage renal disease; Z99.2 Dependence on renal dialysis; K21.9 Gastro-esophageal reflux disease without esophagitis; G30.9 Alzheimer's disease, unspecified; F02.81 Dementia in other diseases classified elsewhere, unspecified severity, with behavioral disturbance; Z86.73 Personal history of transient ischemic attack (TIA), and cerebral infarction without residual deficits; Z79.4 Long term (current) use of insulin

== ENCOUNTER 2020-01-08 11:21 | Emergency (ER) | payer MEDICARE ==
[2020-01-08 11:29] VITALS: BP 121/59; Ht 180.3 cm
[2020-01-08 12:40] LABS: BASOPHILS 0.3 % (0-2); EOSINOPHILS 1.7 % (0-7); HEMATOCRIT 34.8 % (42.0-54.0); HEMOGLOBIN 11.2 g/dL (13.5-17.5); IMMATURE GRANULOCYTES 0.2 % (0-5); LYMPHOCYTES 20.1 % (15-50); MCH 32.1 pg (26.0-34.0); MCHC 32.2 g/dL (31.0-37.0); MCV 99.7 fL (80.0-100.0); MEAN PLATELET VOLUME 10.7 fL (7.4-10.4); MONOCYTES 10.3 % (2-11); NEUTROPHILS 67.4 % (40-80); PLATELET COUNT 204 10x3/uL (130-400); RBC 3.49 10x6/uL (4.20-6.10); RDW 13.6 % (11.5-14.5); WBC 5.8 10x3/uL (4.8-10.8)
[2020-01-08 12:43] LABS: ANION GAP 14.9 mmol/L (8-16); CALCIUM 9.7 mg/dL (8.5-10.1); CARBON DIOXIDE 24.4 mmol/L (21.0-32.0); CREATININE - SERUM 5.7 mg/dL (0.6-1.3); POTASSIUM - SERUM 5.3 mmol/L (3.5-5.1)
[2020-01-08 12:50] LABS: ALBUMIN 3.7 g/dL (3.4-5.0); BILIRUBIN - TOTAL 0.43 mg/dL (0.2-1.3); PROTEIN - SERUM 7.6 g/dL (6.4-8.2)
[2020-01-11 09:12] LABS: HEPATITIS C ANTIBODY 0.3 S/CO RAT (0.0-0.9)
== END 2020-01-08 18:25 | disposition home or self-care (01) ==
LOC: D.ER 11:21
PROVIDERS: Family Medicine
DX: E11.22 Type 2 diabetes mellitus with diabetic chronic kidney disease (principal); I12.0 Hypertensive chronic kidney disease with stage 5 chronic kidney disease or end stage renal disease; N18.6 End stage renal disease; Z99.2 Dependence on renal dialysis; E87.5 Hyperkalemia; K21.9 Gastro-esophageal reflux disease without esophagitis; F03.90 Unspecified dementia, unspecified severity, without behavioral disturbance, psychotic disturbance, mood disturbance, and anxiety; Z86.73 Personal history of transient ischemic attack (TIA), and cerebral infarction without residual deficits

== ENCOUNTER 2020-01-11 14:20 | Emergency (ER) | payer MEDICARE ==
[~2020-01-11] VITALS: Ht 180.3 cm; Wt 72.7 kg
[2020-01-11 14:52] VITALS: Ht 180.3 cm; Wt 72.7 kg
[2020-01-11 15:00] VITALS: BP 134/68
== END 2020-01-11 15:01 | disposition home or self-care (01) ==
LOC: D.ER 14:20
DX: E11.22 Type 2 diabetes mellitus with diabetic chronic kidney disease (principal); I12.0 Hypertensive chronic kidney disease with stage 5 chronic kidney disease or end stage renal disease; N18.6 End stage renal disease; Z99.2 Dependence on renal dialysis; Z86.73 Personal history of transient ischemic attack (TIA), and cerebral infarction without residual deficits; F03.90 Unspecified dementia, unspecified severity, without behavioral disturbance, psychotic disturbance, mood disturbance, and anxiety; K21.9 Gastro-esophageal reflux disease without esophagitis; Z79.4 Long term (current) use of insulin

== ENCOUNTER → 2020-01-11 | Emergency (ER) | payer MEDICARE | LOC: D.ER 10:58 | DX: E11.22 Type 2 diabetes mellitus with diabetic chronic kidney disease (principal); I12.0 Hypertensive chronic kidney disease with stage 5 chronic kidney disease or end stage renal disease; N18.6 End stage renal disease; Z99.2 Dependence on renal dialysis; Z86.73 Personal history of transient ischemic attack (TIA), and cerebral infarction without residual deficits; F03.90 Unspecified dementia, unspecified severity, without behavioral disturbance, psychotic disturbance, mood disturbance, and anxiety; K21.9 Gastro-esophageal reflux disease without esophagitis; Z79.4 Long term (current) use of insulin ==

== ENCOUNTER 2020-01-13 12:11 | Emergency (ER) | payer MEDICARE ==
[~2020-01-13] VITALS: Ht 180.3 cm; Wt 68.2 kg
[2020-01-13 12:31] VITALS: Ht 180.3 cm; Wt 68.2 kg
[2020-01-13 13:32] LABS: BASOPHILS 0.7 % (0-2); EOSINOPHILS 1.4 % (0-7); HEMOGLOBIN 11.2 g/dL (13.5-17.5); IMMATURE GRANULOCYTES 0.2 % (0-5); LYMPHOCYTES 17.8 % (15-50); MCH 31.7 pg (26.0-34.0); MCV 99.2 fL (80.0-100.0); MEAN PLATELET VOLUME 11.1 fL (7.4-10.4); MONOCYTES 9.6 % (2-11); NEUTROPHILS 70.3 % (40-80); PLATELET COUNT 192 10x3/uL (130-400); RBC 3.53 10x6/uL (4.20-6.10); RDW 13.5 % (11.5-14.5); WBC 5.9 10x3/uL (4.8-10.8)
[2020-01-13 13:49] LABS: CALC OSMOLALITY 291 mosm/kg (275-300); CALCIUM 9.6 mg/dL (8.5-10.1); CARBON DIOXIDE 25.3 mmol/L (21.0-32.0); CHLORIDE - SERUM 104 mmol/L (98-107); CREATININE - SERUM 5.6 mg/dL (0.6-1.3); GLUCOSE 105 mg/dL (74-106); SODIUM 140 mmol/L (136-145); UREA NITROGEN 48 mg/dL (7-18); eGFR NON AFRICAN AMERICAN 11 mL/min (90-120)
[2020-01-13 14:14] LABS: ALBUMIN 4.2 g/dL (3.4-5.0); ALKALINE PHOSPHATASE 92 U/L (30-120); ALT (SGPT) 21 U/L (10-68); BILIRUBIN - TOTAL 0.31 mg/dL (0.2-1.3); CREATINE KINASE 283 UL (21-232); MAGNESIUM - SERUM 1.9 mg/dL (1.8-2.4); PHOSPHOROUS 4.5 mg/dL (2.5-4.9); PROTEIN - SERUM 7.8 g/dL (6.4-8.2)
[2020-01-13 14:15] LABS: CKMB 3.5 U/L (0.0-3.6)
[2020-01-13 15:04] VITALS: BP 141/93
== END 2020-01-13 15:07 | disposition home or self-care (01) ==
LOC: D.ER 12:11
PROVIDERS: Family Medicine
DX: I12.9 Hypertensive chronic kidney disease with stage 1 through stage 4 chronic kidney disease, or unspecified chronic kidney disease (principal); N18.9 Chronic kidney disease, unspecified; Z99.2 Dependence on renal dialysis; Z86.73 Personal history of transient ischemic attack (TIA), and cerebral infarction without residual deficits

== ENCOUNTER 2020-01-15 11:12 | Emergency (ER) | payer MEDICARE ==
[2020-01-15 12:05] LABS: BASOPHILS 0.5 % (0-2); EOSINOPHILS 1.5 % (0-7); HEMATOCRIT 35.3 % (42.0-54.0); HEMOGLOBIN 11.2 g/dL (13.5-17.5); IMMATURE GRANULOCYTES 0.2 % (0-5); LYMPHOCYTES 18.6 % (15-50); MCH 31.9 pg (26.0-34.0); MCHC 31.7 g/dL (31.0-37.0); MCV 100.6 fL (80.0-100.0); MEAN PLATELET VOLUME 11.2 fL (7.4-10.4); NEUTROPHILS 68.2 % (40-80); PLATELET COUNT 192 10x3/uL (130-400); RBC 3.51 10x6/uL (4.20-6.10); RDW 13.4 % (11.5-14.5); WBC 5.9 10x3/uL (4.8-10.8)
[2020-01-15 12:31] VITALS: Ht 180.3 cm
[2020-01-15 12:39] LABS: ANION GAP 16.7 mmol/L (8-16); CALCIUM 9.8 mg/dL (8.5-10.1); CARBON DIOXIDE 24.1 mmol/L (21.0-32.0); CREATININE - SERUM 5.8 mg/dL (0.6-1.3); POTASSIUM - SERUM 4.8 mmol/L (3.5-5.1)
[2020-01-15 12:49] LABS: BILIRUBIN - TOTAL 0.31 mg/dL (0.2-1.3); PROTEIN - SERUM 7.6 g/dL (6.4-8.2)
[2020-01-15 14:03] VITALS: BP 131/70
== END 2020-01-15 14:03 | disposition home or self-care (01) ==
LOC: D.ER 11:12
PROVIDERS: Family Medicine
DX: I12.9 Hypertensive chronic kidney disease with stage 1 through stage 4 chronic kidney disease, or unspecified chronic kidney disease (principal); N18.9 Chronic kidney disease, unspecified; Z99.2 Dependence on renal dialysis; Z91.19 Patient's noncompliance with other medical treatment and regimen

== ENCOUNTER 2020-01-18 12:47 | Emergency (ER) | payer MEDICARE ==
[~2020-01-18] VITALS: Ht 180.3 cm; Wt 68.2 kg
[2020-01-18 12:57] VITALS: Ht 180.3 cm; Wt 68.2 kg
[2020-01-18 14:41] LABS: BASOPHILS 0.4 % (0-2); EOSINOPHILS 1.7 % (0-7); HEMATOCRIT 32.6 % (42.0-54.0); HEMOGLOBIN 10.3 g/dL (13.5-17.5); IMMATURE GRANULOCYTES 0.2 % (0-5); LYMPHOCYTES 16.9 % (15-50); MCH 31.4 pg (26.0-34.0); MCHC 31.6 g/dL (31.0-37.0); MCV 99.4 fL (80.0-100.0); MEAN PLATELET VOLUME 11.1 fL (7.4-10.4); MONOCYTES 7.6 % (2-11); NEUTROPHILS 73.2 % (40-80); PLATELET COUNT 196 10x3/uL (130-400); RBC 3.28 10x6/uL (4.20-6.10); RDW 13.4 % (11.5-14.5); WBC 5.4 10x3/uL (4.8-10.8)
[2020-01-18 15:26] LABS: ANION GAP 14.4 mmol/L (8-16); CALCIUM 9.4 mg/dL (8.5-10.1); CREATININE - SERUM 5.4 mg/dL (0.6-1.3); POTASSIUM - SERUM 5.4 mmol/L (3.5-5.1)
[2020-01-18 15:39] LABS: ALBUMIN 3.7 g/dL (3.4-5.0); BILIRUBIN - TOTAL 0.29 mg/dL (0.2-1.3); PROTEIN - SERUM 7.7 g/dL (6.4-8.2)
[2020-01-18 16:04] VITALS: BP 164/80
== END 2020-01-18 16:09 | disposition home or self-care (01) ==
LOC: D.ER 12:47
PROVIDERS: Emergency Medicine
DX: I12.0 Hypertensive chronic kidney disease with stage 5 chronic kidney disease or end stage renal disease (principal); N18.6 End stage renal disease; Z99.2 Dependence on renal dialysis; Z86.73 Personal history of transient ischemic attack (TIA), and cerebral infarction without residual deficits

== ENCOUNTER 2020-01-20 11:27 | Emergency (ER) | payer MEDICARE ==
[~2020-01-20] VITALS: Ht 180.3 cm; Wt 90.9 kg
[2020-01-20 12:11] VITALS: Ht 180.3 cm; Wt 90.9 kg
[2020-01-20 12:27] LABS: BASOPHILS 0.5 % (0-2); EOSINOPHILS 1.3 % (0-7); HEMATOCRIT 35.6 % (42.0-54.0); HEMOGLOBIN 11.3 g/dL (13.5-17.5); IMMATURE GRANULOCYTES 0.2 % (0-5); LYMPHOCYTES 18.9 % (15-50); MCHC 31.7 g/dL (31.0-37.0); MCV 100.8 fL (80.0-100.0); MEAN PLATELET VOLUME 10.8 fL (7.4-10.4); MONOCYTES 10.2 % (2-11); NEUTROPHILS 68.9 % (40-80); PLATELET COUNT 179 10x3/uL (130-400); RBC 3.53 10x6/uL (4.20-6.10); RDW 13.6 % (11.5-14.5); WBC 5.6 10x3/uL (4.8-10.8)
[2020-01-20 12:47] LABS: ANION GAP 15.7 mmol/L (8-16); CALCIUM 10.1 mg/dL (8.5-10.1); CARBON DIOXIDE 22.6 mmol/L (21.0-32.0); CREATININE - SERUM 5.2 mg/dL (0.6-1.3); POTASSIUM - SERUM 5.3 mmol/L (3.5-5.1)
[2020-01-20 12:53] LABS: ALBUMIN 4.1 g/dL (3.4-5.0); BILIRUBIN - TOTAL 0.26 mg/dL (0.2-1.3); PROTEIN - SERUM 7.8 g/dL (6.4-8.2)
[2020-01-20 13:49] VITALS: BP 147/93
== END 2020-01-20 13:50 | disposition home or self-care (01) ==
LOC: D.ER 11:27
PROVIDERS: Family Medicine
DX: I12.0 Hypertensive chronic kidney disease with stage 5 chronic kidney disease or end stage renal disease (principal); N18.6 End stage renal disease; Z99.2 Dependence on renal dialysis

== ENCOUNTER 2020-01-28 12:31 | Emergency (ER) | payer MEDICARE ==
[~2020-01-28] VITALS: Ht 180.3 cm; Wt 81.8 kg
[2020-01-28 12:49] VITALS: Ht 180.3 cm; Wt 81.8 kg
[2020-01-28 13:19] LABS: BASOPHILS 0.7 % (0-2); EOSINOPHILS 1.8 % (0-7); HEMATOCRIT 32.3 % (42.0-54.0); HEMOGLOBIN 10.2 g/dL (13.5-17.5); IMMATURE GRANULOCYTES 0.2 % (0-5); LYMPHOCYTES 22.4 % (15-50); MCH 32.1 pg (26.0-34.0); MCHC 31.6 g/dL (31.0-37.0); MCV 101.6 fL (80.0-100.0); MEAN PLATELET VOLUME 10.9 fL (7.4-10.4); MONOCYTES 8.8 % (2-11); NEUTROPHILS 66.1 % (40-80); PLATELET COUNT 159 10x3/uL (130-400); RBC 3.18 10x6/uL (4.20-6.10); RDW 13.5 % (11.5-14.5); WBC 4.6 10x3/uL (4.8-10.8)
[2020-01-28 13:30] LABS: ANION GAP 16.3 mmol/L (8-16); CALCIUM 9.7 mg/dL (8.5-10.1); CARBON DIOXIDE 17.6 mmol/L (21.0-32.0); POTASSIUM - SERUM 5.9 mmol/L (3.5-5.1)
[2020-01-28 13:35] LABS: ALBUMIN 3.7 g/dL (3.4-5.0); BILIRUBIN - TOTAL 0.29 mg/dL (0.2-1.3); MAGNESIUM - SERUM 1.8 mg/dL (1.8-2.4); PHOSPHOROUS 3.3 mg/dL (2.5-4.9); PROTEIN - SERUM 7.9 g/dL (6.4-8.2)
[2020-01-28 18:55] VITALS: BP 138/69
== END 2020-01-28 18:53 ==
LOC: D.ER 12:31
PROVIDERS: Family Medicine
DX: N18.6 End stage renal disease (principal); Z99.2 Dependence on renal dialysis; I10 Essential (primary) hypertension; E87.5 Hyperkalemia; E87.2 Acidosis

== ENCOUNTER 2020-02-04 11:52 | Emergency (ER) | payer MEDICARE ==
[~2020-02-04] VITALS: Ht 180.3 cm; Wt 72.7 kg
[2020-02-04 12:08] VITALS: Ht 180.3 cm; Wt 72.7 kg
[2020-02-04 13:12] LABS: ANION GAP 14.7 mmol/L (8-16); CALCIUM 9.6 mg/dL (8.5-10.1); CARBON DIOXIDE 19.2 mmol/L (21.0-32.0); CREATININE - SERUM 4.5 mg/dL (0.6-1.3); POTASSIUM - SERUM 5.9 mmol/L (3.5-5.1)
[2020-02-04 13:15] LABS: ALBUMIN 4.1 g/dL (3.4-5.0); BILIRUBIN - TOTAL 0.44 mg/dL (0.2-1.3); PROTEIN - SERUM 7.6 g/dL (6.4-8.2)
[2020-02-04 13:28] LABS: BASOPHILS 0.8 % (0-2); EOSINOPHILS 1.4 % (0-7); HEMATOCRIT 33.3 % (42.0-54.0); HEMOGLOBIN 10.4 g/dL (13.5-17.5); LYMPHOCYTES 17.8 % (15-50); MCH 31.3 pg (26.0-34.0); MCHC 31.2 g/dL (31.0-37.0); MCV 100.3 fL (80.0-100.0); MEAN PLATELET VOLUME 11.1 fL (7.4-10.4); PLATELET COUNT 184 10x3/uL (130-400); RBC 3.32 10x6/uL (4.20-6.10); RDW 13.4 % (11.5-14.5)
[2020-02-04 17:22] VITALS: BP 148/86
== END 2020-02-04 17:23 ==
LOC: D.ER 11:52
PROVIDERS: Family Medicine
DX: I12.9 Hypertensive chronic kidney disease with stage 1 through stage 4 chronic kidney disease, or unspecified chronic kidney disease (principal); N18.9 Chronic kidney disease, unspecified; Z99.2 Dependence on renal dialysis; Z86.73 Personal history of transient ischemic attack (TIA), and cerebral infarction without residual deficits

== ENCOUNTER 2020-02-10 15:09 | Emergency (ER) | payer MEDICARE ==
[~2020-02-10] VITALS: Ht 180.3 cm; Wt 79.5 kg
[2020-02-10 15:26] VITALS: BP 128/76; Ht 180.3 cm; Wt 79.5 kg
[2020-02-10 15:45] LABS: BASOPHILS 0.5 % (0-2); EOSINOPHILS 1.7 % (0-7); HEMATOCRIT 30.9 % (42.0-54.0); HEMOGLOBIN 9.9 g/dL (13.5-17.5); IMMATURE GRANULOCYTES 0.3 % (0-5); LYMPHOCYTES 15.4 % (15-50); MCH 31.8 pg (26.0-34.0); MCV 99.4 fL (80.0-100.0); MEAN PLATELET VOLUME 10.2 fL (7.4-10.4); MONOCYTES 12.1 % (2-11); PLATELET COUNT 169 10x3/uL (130-400); RBC 3.11 10x6/uL (4.20-6.10); RDW 13.4 % (11.5-14.5); WBC 6.6 10x3/uL (4.8-10.8)
[2020-02-10 16:12] LABS: ANION GAP 16.6 mmol/L (8-16); CALCIUM 9.4 mg/dL (8.5-10.1); CARBON DIOXIDE 21.5 mmol/L (21.0-32.0); CREATININE - SERUM 4.9 mg/dL (0.6-1.3); POTASSIUM - SERUM 5.1 mmol/L (3.5-5.1)
[2020-02-10 16:18] LABS: ALBUMIN 3.8 g/dL (3.4-5.0); BILIRUBIN - TOTAL 0.3 mg/dL (0.2-1.3); MAGNESIUM - SERUM 1.7 mg/dL (1.8-2.4); PHOSPHOROUS 3.5 mg/dL (2.5-4.9); PROTEIN - SERUM 7.2 g/dL (6.4-8.2)
== END 2020-02-10 19:20 | disposition home or self-care (01) ==
LOC: D.ER 15:09
PROVIDERS: Family Medicine
DX: I12.9 Hypertensive chronic kidney disease with stage 1 through stage 4 chronic kidney disease, or unspecified chronic kidney disease (principal); N18.9 Chronic kidney disease, unspecified; Z86.73 Personal history of transient ischemic attack (TIA), and cerebral infarction without residual deficits; Z99.2 Dependence on renal dialysis

== ENCOUNTER 2020-02-18 12:39 | Emergency (ER) | payer MEDICARE ==
[~2020-02-18] VITALS: Ht 180.3 cm; Wt 90.9 kg
[2020-02-18 12:44] VITALS: Ht 180.3 cm; Wt 90.9 kg
[2020-02-18 13:21] LABS: ALBUMIN 3.7 g/dL (3.4-5.0); ANION GAP 15.2 mmol/L (8-16); BILIRUBIN - TOTAL 0.27 mg/dL (0.2-1.3); CALCIUM 9.5 mg/dL (8.5-10.1); CARBON DIOXIDE 20.1 mmol/L (21.0-32.0); CREATININE - SERUM 4.8 mg/dL (0.6-1.3); MAGNESIUM - SERUM 1.7 mg/dL (1.8-2.4); PHOSPHOROUS 3.2 mg/dL (2.5-4.9); PROTEIN - SERUM 7.8 g/dL (6.4-8.2)
[2020-02-18 14:05] LABS: POTASSIUM - SERUM 6.3 mmol/L (3.5-5.1)
[2020-02-18 15:28] LABS: BASOPHILS 0.5 % (0-2); EOSINOPHILS 1.8 % (0-7); HEMATOCRIT 30.9 % (42.0-54.0); HEMOGLOBIN 9.7 g/dL (13.5-17.5); IMMATURE GRANULOCYTES 0.2 % (0-5); LYMPHOCYTES 17.9 % (15-50); MCH 31.3 pg (26.0-34.0); MCHC 31.4 g/dL (31.0-37.0); MCV 99.7 fL (80.0-100.0); MEAN PLATELET VOLUME 11.1 fL (7.4-10.4); MONOCYTES 8.9 % (2-11); NEUTROPHILS 70.7 % (40-80); PLATELET COUNT 189 10x3/uL (130-400); RDW 13.3 % (11.5-14.5); WBC 5.5 10x3/uL (4.8-10.8)
[2020-02-18 16:52] VITALS: BP 148/80
== END 2020-02-18 16:53 | disposition home or self-care (01) ==
LOC: D.ER 12:39
PROVIDERS: Family Medicine
DX: N18.6 End stage renal disease (principal); Z99.2 Dependence on renal dialysis; E87.5 Hyperkalemia; I12.0 Hypertensive chronic kidney disease with stage 5 chronic kidney disease or end stage renal disease; Z86.73 Personal history of transient ischemic attack (TIA), and cerebral infarction without residual deficits

== ENCOUNTER 2020-02-22 12:01 | Emergency (ER) | payer MEDICARE ==
[~2020-02-22] VITALS: Ht 180.3 cm; Wt 75.0 kg
[2020-02-22 12:10] VITALS: BP 139/71; Ht 180.3 cm; Wt 75.0 kg
== END 2020-02-22 13:47 | disposition home or self-care (01) ==
LOC: D.ER 12:01
DX: I12.0 Hypertensive chronic kidney disease with stage 5 chronic kidney disease or end stage renal disease (principal); N18.6 End stage renal disease; Z99.2 Dependence on renal dialysis; Z86.73 Personal history of transient ischemic attack (TIA), and cerebral infarction without residual deficits

== ENCOUNTER 2020-02-26 10:39 | Emergency (ER) | payer MEDICARE ==
[~2020-02-26] VITALS: Ht 180.3 cm; Wt 81.8 kg
[2020-02-26 10:47] VITALS: Ht 180.3 cm; Wt 81.8 kg
[2020-02-26 12:38] LABS: BASOPHILS 0.7 % (0-2); EOSINOPHILS 1.4 % (0-7); IMMATURE GRANULOCYTES 0.2 % (0-5); LYMPHOCYTES 18.5 % (15-50); MCH 31.3 pg (26.0-34.0); MCHC 31.3 g/dL (31.0-37.0); MEAN PLATELET VOLUME 11.3 fL (7.4-10.4); MONOCYTES 9.1 % (2-11); NEUTROPHILS 70.1 % (40-80); PLATELET COUNT 159 10x3/uL (130-400); RDW 13.3 % (11.5-14.5); WBC 5.7 10x3/uL (4.8-10.8)
[2020-02-26 13:05] LABS: ALBUMIN 3.6 g/dL (3.4-5.0); ANION GAP 17.8 mmol/L (8-16); BILIRUBIN - TOTAL 0.41 mg/dL (0.2-1.3); CALCIUM 9.4 mg/dL (8.5-10.1); CARBON DIOXIDE 20.5 mmol/L (21.0-32.0); CREATININE - SERUM 4.5 mg/dL (0.6-1.3)
[2020-02-26 13:12] LABS: POTASSIUM - SERUM 6.3 mmol/L (3.5-5.1)
[2020-02-26 16:16] VITALS: BP 148/98
== END 2020-02-26 16:17 | disposition home or self-care (01) ==
LOC: D.ER 10:39
PROVIDERS: Family Medicine
DX: I12.0 Hypertensive chronic kidney disease with stage 5 chronic kidney disease or end stage renal disease (principal); N18.6 End stage renal disease; Z99.2 Dependence on renal dialysis

== ENCOUNTER 2020-03-01 11:36 | Emergency (ER) | payer MEDICARE ==
[~2020-03-01] VITALS: Ht 180.3 cm; Wt 81.8 kg
[2020-03-01 11:43] VITALS: BP 138/77; Ht 180.3 cm; Wt 81.8 kg
[2020-03-01 11:56] LABS: BASOPHILS 0.6 % (0-2); EOSINOPHILS 2.6 % (0-7); HEMATOCRIT 31.9 % (42.0-54.0); HEMOGLOBIN 9.8 g/dL (13.5-17.5); LYMPHOCYTES 21.1 % (15-50); MCH 30.4 pg (26.0-34.0); MCHC 30.7 g/dL (31.0-37.0); MCV 99.1 fL (80.0-100.0); MEAN PLATELET VOLUME 11.2 fL (7.4-10.4); MONOCYTES 11.6 % (2-11); NEUTROPHILS 64.1 % (40-80); PLATELET COUNT 164 10x3/uL (130-400); RBC 3.22 10x6/uL (4.20-6.10); RDW 13.4 % (11.5-14.5); WBC 4.6 10x3/uL (4.8-10.8)
[2020-03-01 12:18] LABS: ANION GAP 16.3 mmol/L (8-16); CALCIUM 9.1 mg/dL (8.5-10.1); CARBON DIOXIDE 20.4 mmol/L (21.0-32.0); CREATININE - SERUM 4.5 mg/dL (0.6-1.3); POTASSIUM - SERUM 5.7 mmol/L (3.5-5.1)
[2020-03-01 12:25] LABS: ALBUMIN 3.5 g/dL (3.4-5.0); BILIRUBIN - TOTAL 0.3 mg/dL (0.2-1.3)
== END 2020-03-01 14:33 | disposition left against medical advice (07) ==
LOC: D.ER 11:36
PROVIDERS: Emergency Medicine
DX: I12.0 Hypertensive chronic kidney disease with stage 5 chronic kidney disease or end stage renal disease (principal); N18.6 End stage renal disease; Z86.73 Personal history of transient ischemic attack (TIA), and cerebral infarction without residual deficits; E87.5 Hyperkalemia; D64.9 Anemia, unspecified

== ENCOUNTER 2020-07-08 11:41 | Emergency (ER) | payer MEDICARE ==
[~2020-07-08] VITALS: Ht 180.3 cm; Wt 75.5 kg
[2020-07-08 11:50] VITALS: Ht 180.3 cm; Wt 75.5 kg
[2020-07-08 17:21] VITALS: BP 167/108
== END 2020-07-08 17:22 | disposition home or self-care (01) ==
LOC: D.ER 11:41
DX: N18.6 End stage renal disease (principal); Z99.2 Dependence on renal dialysis

== ENCOUNTER 2020-07-15 12:13 | Emergency (ER) | payer MEDICARE ==
[~2020-07-15] VITALS: Ht 180.3 cm; Wt 72.7 kg
[2020-07-15 12:17] VITALS: BP 185/97; Ht 180.3 cm; Wt 72.7 kg
[2020-07-15 14:16] LABS: BASOPHILS 0.2 % (0-2); EOSINOPHILS 0.6 % (0-7); HEMATOCRIT 28.5 % (42.0-54.0); HEMOGLOBIN 8.8 g/dL (13.5-17.5); IMMATURE GRANULOCYTES 0.2 % (0-5); LYMPHOCYTE ABS# 0.68 10x3/uL (1.32-3.57); LYMPHOCYTES 14.3 % (15-50); MCH 29.9 pg (26.0-34.0); MCHC 30.9 g/dL (31.0-37.0); MCV 96.9 fL (80.0-100.0); MEAN PLATELET VOLUME 11.1 fL (7.4-10.4); MONOCYTES 8.4 % (2-11); NEUTROPHIL ABS# 3.61 10x3/uL (1.78-5.38); NEUTROPHILS 76.3 % (40-80); PLATELET COUNT 139 10x3/uL (130-400); RBC 2.94 10x6/uL (4.20-6.10); RDW 14.4 % (11.5-14.5); WBC 4.7 10x3/uL (4.8-10.8)
[2020-07-15 14:29] LABS: ANION GAP 15.3 mmol/L (8-16); CALCIUM 9.2 mg/dL (8.5-10.1); CARBON DIOXIDE 19.9 mmol/L (21.0-32.0); CREATININE - SERUM 4.5 mg/dL (0.6-1.3); POTASSIUM - SERUM 5.2 mmol/L (3.5-5.1)
== END 2020-07-15 16:34 | disposition home or self-care (01) ==
LOC: D.ER 12:13
PROVIDERS: Internal Medicine
DX: I12.0 Hypertensive chronic kidney disease with stage 5 chronic kidney disease or end stage renal disease (principal); N18.6 End stage renal disease; Z99.2 Dependence on renal dialysis

== ENCOUNTER 2020-07-22 13:41 | Emergency (ER) | payer MEDICARE ==
[~2020-07-22] VITALS: Ht 180.3 cm; Wt 72.7 kg
[2020-07-22 13:49] VITALS: Ht 180.3 cm; Wt 72.7 kg
[2020-07-22 14:06] VITALS: BP 113/56
== END 2020-07-22 14:07 | disposition home or self-care (01) ==
LOC: D.ER 13:41
DX: I12.0 Hypertensive chronic kidney disease with stage 5 chronic kidney disease or end stage renal disease (principal); N18.6 End stage renal disease; Z99.2 Dependence on renal dialysis

== ENCOUNTER 2020-07-29 14:25 | Emergency (ER) | payer MEDICARE ==
[~2020-07-29] VITALS: Ht 180.3 cm; Wt 72.7 kg
[2020-07-29 14:31] VITALS: Ht 180.3 cm; Wt 72.7 kg
[2020-07-29 15:13] LABS: BASOPHILS 0.9 % (0-2); EOSINOPHILS 3.4 % (0-7); HEMATOCRIT 30.7 % (42.0-54.0); HEMOGLOBIN 9.5 g/dL (13.5-17.5); LYMPHOCYTES 20.3 % (15-50); MCHC 30.9 g/dL (31.0-37.0); MCV 96.8 fL (80.0-100.0); MEAN PLATELET VOLUME 10.6 fL (7.4-10.4); MONOCYTES 12.2 % (2-11); NEUTROPHIL ABS# 2.81 10x3/uL (1.78-5.38); NEUTROPHILS 63.2 % (40-80); PLATELET COUNT 191 10x3/uL (130-400); RBC 3.17 10x6/uL (4.20-6.10); RDW 14.4 % (11.5-14.5); WBC 4.4 10x3/uL (4.8-10.8)
[2020-07-29 15:14] LABS: ANION GAP 12.7 mmol/L (8-16); CALCIUM 8.8 mg/dL (8.5-10.1); CARBON DIOXIDE 21.2 mmol/L (21.0-32.0); CREATININE - SERUM 4.5 mg/dL (0.6-1.3); POTASSIUM - SERUM 4.9 mmol/L (3.5-5.1)
[2020-07-29 15:20] LABS: ALBUMIN 3.2 g/dL (3.4-5.0); BILIRUBIN - TOTAL 0.31 mg/dL (0.2-1.3)
== END 2020-07-29 16:35 | disposition home or self-care (01) ==
LOC: D.ER 14:25
PROVIDERS: Family Medicine
DX: I12.0 Hypertensive chronic kidney disease with stage 5 chronic kidney disease or end stage renal disease (principal); N18.6 End stage renal disease; Z99.2 Dependence on renal dialysis

== ENCOUNTER 2020-08-05 13:32 | Emergency (ER) | payer MEDICARE ==
[~2020-08-05] VITALS: Ht 180.3 cm; Wt 68.2 kg
[2020-08-05 13:36] VITALS: Ht 180.3 cm; Wt 68.2 kg
[2020-08-05 14:32] LABS: BASOPHILS 0.4 % (0-2); EOSINOPHILS 0.8 % (0-7); HEMATOCRIT 29.4 % (42.0-54.0); HEMOGLOBIN 9.2 g/dL (13.5-17.5); IMMATURE GRANULOCYTES 0.2 % (0-5); LYMPHOCYTE ABS# 0.74 10x3/uL (1.32-3.57); LYMPHOCYTES 15.2 % (15-50); MCH 29.6 pg (26.0-34.0); MCHC 31.3 g/dL (31.0-37.0); MCV 94.5 fL (80.0-100.0); NEUTROPHIL ABS# 3.71 10x3/uL (1.78-5.38); NEUTROPHILS 76.4 % (40-80); PLATELET COUNT 175 10x3/uL (130-400); RBC 3.11 10x6/uL (4.20-6.10); RDW 14.4 % (11.5-14.5); WBC 4.9 10x3/uL (4.8-10.8)
[2020-08-05 14:42] LABS: ANION GAP 16.2 mmol/L (8-16); CALCIUM 9.3 mg/dL (8.5-10.1); CARBON DIOXIDE 20.8 mmol/L (21.0-32.0); CREATININE - SERUM 4.7 mg/dL (0.6-1.3)
[2020-08-05 15:35] VITALS: BP 186/76
== END 2020-08-05 15:36 | disposition home or self-care (01) ==
LOC: D.ER 13:32
PROVIDERS: Internal Medicine Nephrology
DX: I12.0 Hypertensive chronic kidney disease with stage 5 chronic kidney disease or end stage renal disease (principal); N18.6 End stage renal disease; Z99.2 Dependence on renal dialysis

== ENCOUNTER 2020-08-12 14:05 | Emergency (ER) | payer MEDICARE ==
[~2020-08-12] VITALS: Ht 180.3 cm; Wt 74.8 kg
[2020-08-12 14:12] VITALS: BP 179/68; Ht 180.3 cm; Wt 74.8 kg
[2020-08-12 15:12] LABS: BASOPHILS 0.9 % (0-2); EOSINOPHILS 2.5 % (0-7); HEMATOCRIT 31.7 % (42.0-54.0); HEMOGLOBIN 9.6 g/dL (13.5-17.5); IMMATURE GRANULOCYTES 0.2 % (0-5); LYMPHOCYTE ABS# 0.69 10x3/uL (1.32-3.57); LYMPHOCYTES 15.6 % (15-50); MCH 29.4 pg (26.0-34.0); MCHC 30.3 g/dL (31.0-37.0); MCV 96.9 fL (80.0-100.0); MEAN PLATELET VOLUME 11.7 fL (7.4-10.4); MONOCYTES 10.2 % (2-11); NEUTROPHIL ABS# 3.12 10x3/uL (1.78-5.38); NEUTROPHILS 70.6 % (40-80); PLATELET COUNT 160 10x3/uL (130-400); RBC 3.27 10x6/uL (4.20-6.10); RDW 14.5 % (11.5-14.5); WBC 4.4 10x3/uL (4.8-10.8)
[2020-08-12 15:21] LABS: ANION GAP 16.9 mmol/L (8-16); CARBON DIOXIDE 20.2 mmol/L (21.0-32.0); CREATININE - SERUM 4.4 mg/dL (0.6-1.3); POTASSIUM - SERUM 5.1 mmol/L (3.5-5.1)
[2020-08-12 15:27] LABS: ALBUMIN 3.2 g/dL (3.4-5.0); BILIRUBIN - TOTAL 0.48 mg/dL (0.2-1.3); PROTEIN - SERUM 7.2 g/dL (6.4-8.2)
== END 2020-08-12 17:43 | disposition home or self-care (01) ==
LOC: D.ER 14:05
PROVIDERS: Family Medicine
DX: I12.0 Hypertensive chronic kidney disease with stage 5 chronic kidney disease or end stage renal disease (principal); N18.6 End stage renal disease; Z99.2 Dependence on renal dialysis

== ENCOUNTER 2020-08-19 13:47 | Emergency (ER) | payer MEDICARE ==
[~2020-08-19] VITALS: Ht 180.3 cm; Wt 118.2 kg
[2020-08-19 13:53] VITALS: Ht 180.3 cm; Wt 118.2 kg
[2020-08-19 18:10] VITALS: BP 148/68
== END 2020-08-19 18:14 | disposition home or self-care (01) ==
LOC: D.ER 13:47
DX: I12.0 Hypertensive chronic kidney disease with stage 5 chronic kidney disease or end stage renal disease (principal); N18.6 End stage renal disease; Z99.2 Dependence on renal dialysis

== ENCOUNTER 2020-08-26 13:58 | Emergency (ER) | payer MEDICARE ==
[~2020-08-26] VITALS: Ht 180.3 cm; Wt 75.0 kg
[2020-08-26 14:06] VITALS: BP 139/74; Ht 180.3 cm; Wt 75.0 kg
== END 2020-08-26 17:00 | disposition home or self-care (01) ==
LOC: D.ER 13:58
DX: I12.0 Hypertensive chronic kidney disease with stage 5 chronic kidney disease or end stage renal disease (principal); N18.6 End stage renal disease; Z99.2 Dependence on renal dialysis

== ENCOUNTER 2020-08-29 10:52 | Emergency (ER) | payer MEDICARE ==
[~2020-08-29] VITALS: Ht 180.3 cm; Wt 75.0 kg
[2020-08-29 11:16] VITALS: Ht 180.3 cm; Wt 75.0 kg
[2020-08-29 12:43] LABS: ANION GAP 16.5 mmol/L (8-16); CALCIUM 8.6 mg/dL (8.5-10.1); CARBON DIOXIDE 18.8 mmol/L (21.0-32.0); CREATININE - SERUM 4.6 mg/dL (0.6-1.3); POTASSIUM - SERUM 5.3 mmol/L (3.5-5.1)
[2020-08-29 12:53] LABS: BASOPHILS 0.8 % (0-2); EOSINOPHILS 1.8 % (0-7); HEMATOCRIT 28.7 % (42.0-54.0); LYMPHOCYTE ABS# 0.78 10x3/uL (1.32-3.57); LYMPHOCYTES 19.9 % (15-50); MCH 29.9 pg (26.0-34.0); MCHC 31.4 g/dL (31.0-37.0); MCV 95.3 fL (80.0-100.0); MEAN PLATELET VOLUME 11.8 fL (7.4-10.4); MONOCYTES 10.7 % (2-11); NEUTROPHIL ABS# 2.62 10x3/uL (1.78-5.38); NEUTROPHILS 66.8 % (40-80); PLATELET COUNT 166 10x3/uL (130-400); RBC 3.01 10x6/uL (4.20-6.10); RDW 14.8 % (11.5-14.5); WBC 3.9 10x3/uL (4.8-10.8)
[2020-08-29 12:56] LABS: BILIRUBIN - TOTAL 0.28 mg/dL (0.2-1.3); PROTEIN - SERUM 6.6 g/dL (6.4-8.2)
[2020-08-29 13:58] VITALS: BP 155/90
--- NOTE | 2020-08-29 14:07 | NUR ---
SCHEDULED FOR TREATMENT TODAY INSTRUCTED BY THIS NURSE WHICH WORKED WELL. APPLIED EMLA CREAM 30 MINUTES PRIOR TO NEEDLE CANNULATION. PATIENT TOLERATED TREATMENT FOR 1.5 HOURS AND 1500L REMOVED. ENDING B/P 148/88. INSTRUCTED CARLOS, PATIENT CAREGIVER, TO CALL ON FRIDAY TO SET UP DIALYSIS FOR NEXT WEEK.
== END 2020-08-29 13:59 ==
LOC: D.ER 10:52
PROVIDERS: Family Medicine
DX: I12.0 Hypertensive chronic kidney disease with stage 5 chronic kidney disease or end stage renal disease (principal); N18.6 End stage renal disease; Z99.2 Dependence on renal dialysis; D63.1 Anemia in chronic kidney disease; E87.5 Hyperkalemia

== ENCOUNTER 2020-09-05 10:42 | Emergency (ER) | payer MEDICARE ==
[~2020-09-05] VITALS: Ht 180.3 cm; Wt 84.1 kg
[2020-09-05 10:52] VITALS: Ht 180.3 cm; Wt 84.1 kg
[2020-09-05 11:55] LABS: ALBUMIN 3.3 g/dL (3.4-5.0); ANION GAP 18.8 mmol/L (8-16); BILIRUBIN - TOTAL 0.31 mg/dL (0.2-1.3); CARBON DIOXIDE 15.6 mmol/L (21.0-32.0); CREATININE - SERUM 4.4 mg/dL (0.6-1.3); POTASSIUM - SERUM 5.4 mmol/L (3.5-5.1); PROTEIN - SERUM 7.6 g/dL (6.4-8.2)
[2020-09-05 11:57] LABS: BASOPHILS 0.5 % (0-2); EOSINOPHILS 3.3 % (0-7); HEMOGLOBIN 9.4 g/dL (13.5-17.5); LYMPHOCYTE ABS# 0.78 10x3/uL (1.32-3.57); LYMPHOCYTES 18.4 % (15-50); MCH 29.7 pg (26.0-34.0); MCHC 30.3 g/dL (31.0-37.0); MCV 98.1 fL (80.0-100.0); MEAN PLATELET VOLUME 11.7 fL (7.4-10.4); MONOCYTES 12.5 % (2-11); NEUTROPHIL ABS# 2.76 10x3/uL (1.78-5.38); NEUTROPHILS 65.3 % (40-80); PLATELET COUNT 160 10x3/uL (130-400); RBC 3.16 10x6/uL (4.20-6.10); RDW 15.1 % (11.5-14.5); WBC 4.2 10x3/uL (4.8-10.8)
[2020-09-05 14:19] VITALS: BP 152/66
[2020-09-06 10:12] LABS: HEPATITIS C ANTIBODY 0.2 (0.0-0.9)
== END 2020-09-05 14:20 | disposition home or self-care (01) ==
LOC: D.ER 10:42
PROVIDERS: Family Medicine; Internal Medicine Nephrology
DX: I12.0 Hypertensive chronic kidney disease with stage 5 chronic kidney disease or end stage renal disease (principal); N18.6 End stage renal disease; Z99.2 Dependence on renal dialysis

== ENCOUNTER 2020-09-14 11:03 | Emergency (ER) | payer MEDICARE ==
[~2020-09-14] VITALS: Ht 180.3 cm; Wt 84.1 kg
[2020-09-14 11:07] VITALS: BP 112/41; Ht 180.3 cm; Wt 84.1 kg
[2020-09-14 11:56] LABS: BASOPHILS 0.7 % (0-2); EOSINOPHILS 2.7 % (0-7); HEMATOCRIT 29.8 % (42.0-54.0); HEMOGLOBIN 9.1 g/dL (13.5-17.5); IMMATURE GRANULOCYTES 0.2 % (0-5); LYMPHOCYTE ABS# 0.68 10x3/uL (1.32-3.57); LYMPHOCYTES 15.4 % (15-50); MCH 29.5 pg (26.0-34.0); MCHC 30.5 g/dL (31.0-37.0); MCV 96.8 fL (80.0-100.0); MONOCYTES 11.8 % (2-11); NEUTROPHIL ABS# 3.06 10x3/uL (1.78-5.38); NEUTROPHILS 69.2 % (40-80); PLATELET COUNT 170 10x3/uL (130-400); RBC 3.08 10x6/uL (4.20-6.10); RDW 15.1 % (11.5-14.5); WBC 4.4 10x3/uL (4.8-10.8)
[2020-09-14 12:05] LABS: CALCIUM 9.1 mg/dL (8.5-10.1); CARBON DIOXIDE 20.4 mmol/L (21.0-32.0); CREATININE - SERUM 4.7 mg/dL (0.6-1.3); POTASSIUM - SERUM 5.4 mmol/L (3.5-5.1)
[2020-09-14 12:11] LABS: ALBUMIN 3.3 g/dL (3.4-5.0); BILIRUBIN - TOTAL 0.33 mg/dL (0.2-1.3); PROTEIN - SERUM 7.6 g/dL (6.4-8.2)
== END 2020-09-14 18:51 | disposition left against medical advice (07) ==
LOC: D.ER 11:03
PROVIDERS: Emergency Medicine
DX: I12.0 Hypertensive chronic kidney disease with stage 5 chronic kidney disease or end stage renal disease (principal); N18.6 End stage renal disease; Z99.2 Dependence on renal dialysis

== ENCOUNTER 2020-09-19 12:51 | Emergency (ER) | payer MEDICARE ==
[~2020-09-19] VITALS: Ht 180.3 cm; Wt 81.8 kg
[2020-09-19 13:02] VITALS: BP 173/86; Ht 180.3 cm; Wt 81.8 kg
== END 2020-09-19 18:20 ==
LOC: D.ER 12:51
DX: I12.0 Hypertensive chronic kidney disease with stage 5 chronic kidney disease or end stage renal disease (principal); N18.6 End stage renal disease; Z99.2 Dependence on renal dialysis

== ENCOUNTER 2020-09-26 13:49 | Emergency (ER) | payer MEDICARE ==
[~2020-09-26] VITALS: Ht 180.3 cm; Wt 84.1 kg
[2020-09-26 13:57] VITALS: Ht 180.3 cm; Wt 84.1 kg
[2020-09-26 14:50] LABS: BASOPHILS 0.9 % (0-2); EOSINOPHILS 2.3 % (0-7); HEMATOCRIT 26.4 % (42.0-54.0); HEMOGLOBIN 8.7 g/dL (13.5-17.5); LYMPHOCYTES 13.3 % (15-50); MCH 30.5 pg (26.0-34.0); MCHC 32.9 g/dL (31.0-37.0); MCV 92.6 fL (80.0-100.0); MEAN PLATELET VOLUME 9.4 fL (7.4-10.4); MONOCYTES 10.9 % (2-11); NEUTROPHILS 72.6 % (40-80); PLATELET COUNT 149 10x3/uL (130-400); RBC 2.85 10x6/uL (4.20-6.10); RDW 16.1 % (11.5-14.5); WBC 4.9 10x3/uL (4.8-10.8)
[2020-09-26 15:02] LABS: ANION GAP 22.7 mmol/L (8-16); CARBON DIOXIDE 16.6 mmol/L (21.0-32.0); CREATININE - SERUM 4.6 mg/dL (0.6-1.3); POTASSIUM - SERUM 5.3 mmol/L (3.5-5.1)
[2020-09-26 15:08] LABS: ALBUMIN 3.3 g/dL (3.4-5.0); BILIRUBIN - TOTAL 0.41 mg/dL (0.2-1.3)
[2020-09-26 16:19] VITALS: BP 141/74
== END 2020-09-26 16:20 ==
LOC: D.ER 13:49
PROVIDERS: Family Medicine
DX: I12.0 Hypertensive chronic kidney disease with stage 5 chronic kidney disease or end stage renal disease (principal); N18.6 End stage renal disease; Z99.2 Dependence on renal dialysis; E87.5 Hyperkalemia; D63.1 Anemia in chronic kidney disease

== ENCOUNTER 2020-10-14 09:30 | Emergency (ER) | payer MEDICARE ==
[~2020-10-14] VITALS: Ht 180.3 cm; Wt 72.7 kg
[2020-10-14 09:36] VITALS: Ht 180.3 cm; Wt 72.7 kg
[2020-10-14 10:55] LABS: BASOPHILS 1.3 % (0-2); EOSINOPHILS 1.8 % (0-7); HEMATOCRIT 26.5 % (42.0-54.0); HEMOGLOBIN 8.6 g/dL (13.5-17.5); LYMPHOCYTES 14.9 % (15-50); MCH 30.5 pg (26.0-34.0); MCHC 32.5 g/dL (31.0-37.0); MCV 93.6 fL (80.0-100.0); MEAN PLATELET VOLUME 9.3 fL (7.4-10.4); MONOCYTES 11.4 % (2-11); NEUTROPHILS 70.6 % (40-80); PLATELET COUNT 136 10x3/uL (130-400); RBC 2.83 10x6/uL (4.20-6.10); RDW 16.5 % (11.5-14.5); WBC 3.7 10x3/uL (4.8-10.8)
[2020-10-14 11:06] LABS: ANION GAP 17.4 mmol/L (8-16); CALCIUM 8.7 mg/dL (8.5-10.1); CARBON DIOXIDE 17.7 mmol/L (21.0-32.0); CREATININE - SERUM 5.2 mg/dL (0.6-1.3); POTASSIUM - SERUM 5.1 mmol/L (3.5-5.1)
[2020-10-14 12:40] VITALS: BP 159/88
== END 2020-10-14 12:40 | disposition home or self-care (01) ==
LOC: D.ER 09:30
PROVIDERS: Internal Medicine Nephrology
DX: I12.0 Hypertensive chronic kidney disease with stage 5 chronic kidney disease or end stage renal disease (principal); N18.6 End stage renal disease; Z99.2 Dependence on renal dialysis

== ENCOUNTER 2020-10-21 09:53 | Emergency (ER) | payer MEDICARE ==
[~2020-10-21] VITALS: Ht 180.3 cm; Wt 75.0 kg
[2020-10-21 10:03] VITALS: Ht 180.3 cm; Wt 75.0 kg
[2020-10-21 11:38] LABS: EOSINOPHILS 1.2 % (0-7); HEMATOCRIT 28.1 % (42.0-54.0); HEMOGLOBIN 9.1 g/dL (13.5-17.5); LYMPHOCYTES 11.5 % (15-50); MCH 29.8 pg (26.0-34.0); MCHC 32.2 g/dL (31.0-37.0); MCV 92.7 fL (80.0-100.0); MEAN PLATELET VOLUME 9.6 fL (7.4-10.4); MONOCYTES 11.1 % (2-11); NEUTROPHILS 75.2 % (40-80); PLATELET COUNT 147 10x3/uL (130-400); RBC 3.03 10x6/uL (4.20-6.10); RDW 15.9 % (11.5-14.5); WBC 5.1 10x3/uL (4.8-10.8)
[2020-10-21 11:40] LABS: ANION GAP 14.7 mmol/L (8-16); CALCIUM 8.7 mg/dL (8.5-10.1); CARBON DIOXIDE 22.3 mmol/L (21.0-32.0)
[2020-10-21 13:25] VITALS: BP 145/78
== END 2020-10-21 13:27 | disposition home or self-care (01) ==
LOC: D.ER 09:53
PROVIDERS: Internal Medicine
DX: I12.0 Hypertensive chronic kidney disease with stage 5 chronic kidney disease or end stage renal disease (principal); N18.6 End stage renal disease; Z99.2 Dependence on renal dialysis

== ENCOUNTER 2020-10-28 09:30 | Emergency (ER) | payer MEDICARE ==
[~2020-10-28] VITALS: Ht 180.3 cm; Wt 84.1 kg
[2020-10-28 09:42] VITALS: Ht 180.3 cm; Wt 84.1 kg
[2020-10-28 10:31] LABS: BASOPHILS 0.9 % (0-2); EOSINOPHILS 1.9 % (0-7); HEMATOCRIT 26.6 % (42.0-54.0); HEMOGLOBIN 8.7 g/dL (13.5-17.5); LYMPHOCYTES 11.2 % (15-50); MCH 30.4 pg (26.0-34.0); MCHC 32.6 g/dL (31.0-37.0); MEAN PLATELET VOLUME 9.2 fL (7.4-10.4); MONOCYTES 11.9 % (2-11); NEUTROPHILS 74.1 % (40-80); PLATELET COUNT 148 10x3/uL (130-400); RBC 2.86 10x6/uL (4.20-6.10); WBC 4.6 10x3/uL (4.8-10.8)
[2020-10-28 10:37] LABS: ANION GAP 14.1 mmol/L (8-16); CALCIUM 8.7 mg/dL (8.5-10.1); CARBON DIOXIDE 20.3 mmol/L (21.0-32.0); CREATININE - SERUM 4.7 mg/dL (0.6-1.3); POTASSIUM - SERUM 5.4 mmol/L (3.5-5.1)
[2020-10-28 12:39] VITALS: BP 151/85
== END 2020-10-28 12:40 | disposition home or self-care (01) ==
LOC: D.ER 09:30
PROVIDERS: Internal Medicine Nephrology
DX: N18.6 End stage renal disease (principal); Z99.2 Dependence on renal dialysis; I10 Essential (primary) hypertension

== ENCOUNTER 2020-11-04 09:05 | Emergency (ER) | payer MEDICARE ==
[~2020-11-04] VITALS: Ht 180.3 cm; Wt 79.5 kg
[2020-11-04 09:17] VITALS: BP 168/72; Ht 180.3 cm; Wt 79.5 kg
[2020-11-04 11:18] LABS: BASOPHILS 1.1 % (0-2); EOSINOPHILS 1.6 % (0-7); HEMATOCRIT 26.6 % (42.0-54.0); HEMOGLOBIN 8.6 g/dL (13.5-17.5); LYMPHOCYTES 16.2 % (15-50); MCH 30.3 pg (26.0-34.0); MCHC 32.5 g/dL (31.0-37.0); MCV 93.1 fL (80.0-100.0); MEAN PLATELET VOLUME 9.6 fL (7.4-10.4); MONOCYTES 11.7 % (2-11); NEUTROPHILS 69.4 % (40-80); PLATELET COUNT 135 10x3/uL (130-400); RBC 2.85 10x6/uL (4.20-6.10); RDW 15.7 % (11.5-14.5); WBC 3.6 10x3/uL (4.8-10.8)
[2020-11-04 11:22] LABS: ANION GAP 15.9 mmol/L (8-16); CALCIUM 8.9 mg/dL (8.5-10.1); CARBON DIOXIDE 20.8 mmol/L (21.0-32.0); CREATININE - SERUM 5.3 mg/dL (0.6-1.3); POTASSIUM - SERUM 5.7 mmol/L (3.5-5.1)
[2020-11-04 11:28] LABS: ALBUMIN 3.2 g/dL (3.4-5.0); BILIRUBIN - TOTAL 0.42 mg/dL (0.2-1.3); PROTEIN - SERUM 6.9 g/dL (6.4-8.2)
== END 2020-11-04 12:23 | disposition home or self-care (01) ==
LOC: D.ER 09:05
PROVIDERS: Family Medicine
DX: I12.0 Hypertensive chronic kidney disease with stage 5 chronic kidney disease or end stage renal disease (principal); N18.6 End stage renal disease; Z99.2 Dependence on renal dialysis

== ENCOUNTER 2020-11-11 10:09 | Emergency (ER) | payer MEDICARE ==
[~2020-11-11] VITALS: Ht 180.3 cm; Wt 70.5 kg
[2020-11-11 10:15] VITALS: Ht 180.3 cm; Wt 70.5 kg
[2020-11-11 11:08] LABS: EOSINOPHILS 1.5 % (0-7); HEMOGLOBIN 8.6 g/dL (13.5-17.5); LYMPHOCYTES 14.5 % (15-50); MCV 93.5 fL (80.0-100.0); MEAN PLATELET VOLUME 9.3 fL (7.4-10.4); MONOCYTES 11.4 % (2-11); NEUTROPHILS 71.6 % (40-80); PLATELET COUNT 148 10x3/uL (130-400); RBC 2.88 10x6/uL (4.20-6.10); RDW 15.5 % (11.5-14.5); WBC 3.7 10x3/uL (4.8-10.8)
[2020-11-11 11:14] LABS: CALCIUM 8.8 mg/dL (8.5-10.1); CARBON DIOXIDE 19.9 mmol/L (21.0-32.0); CREATININE - SERUM 5.2 mg/dL (0.6-1.3); POTASSIUM - SERUM 5.9 mmol/L (3.5-5.1)
[2020-11-11 13:21] VITALS: BP 165/96
== END 2020-11-11 13:22 | disposition home or self-care (01) ==
LOC: D.ER 10:09
PROVIDERS: Internal Medicine
DX: I12.0 Hypertensive chronic kidney disease with stage 5 chronic kidney disease or end stage renal disease (principal); N18.6 End stage renal disease; Z99.2 Dependence on renal dialysis